=== PATIENT | female | born 1985 | race Caucasian/White ===

== ENCOUNTER → 2018-09-03 | Outpatient (CLI) | payer OTHER, SELFPAY ==
--- NOTE | 2018-09-03 07:58 | VDLE_ITS ---
Reason For Study: chronic venous insufficiency, pain and swelling RIGHT LEFT CFV is compressible, spontaneous, phasic, CFV is compressible, spontaneous, phasic, competent and demonstrates normal competent, and demonstrates normal augmentation. augmentation. FV is compressible, spontaneous, phasic, FV is compressible, spontaneous, phasic, competent and demonstrates normal competent and demonstrates normal augmentation. augmentation. POP V is compressible, spontaneous, phasic, POP V is compressible, spontaneous, phasic, competent and demonstrates normal competent and demonstrates normal augmentation. augmentation. T/P Trunk is compressible. T/P Trunk is compressible. PTV is compressible. PTV is compressible. RT PerV is compressible. LT PerV is compressible. S-F Junction is incompetent for greater S-F Junction is incompetent for greater than .5 seconds. S-F Junction measures .75 than .5 seconds. S-F Junction measures .63 cm. cm. GSV is competent above the knee, but GSV is incompetent throughout for greater incompetent below the knee for greater than .5 seconds. GSV measures .71 x .74 cm. than .5 seconds. GSV measures .47 x .51 cm. ASV at the groin is incompetent for greater ASV at the groin is incompetent for greater than .5 seconds. ASV measures 1.13 x 1.23 cm. than .5 seconds. ASV measures 1.06 x 1.12 cm. SSV is competent. SSV is incompetent for greater than .5 ASV from GSV at distal thigh to SSV mid calf seconds. SSV measures .3 x .33 cm. is incompetent for greater than .5 seconds. Procedure ASV measures .3 x .31 cm. Exam performed in department. Recreation Aide V 6 cm proximal to the medial The exam was diagnostic. malleolus is incompetent for greater than .5 Patient was scanned in reverse Trendelenburg seconds. position during reflux assessment. Interpretation Summary Deep veins of the lower extremities are bilaterally patent and compressible segmentally. There is no evidence of deep vein thrombosis on either side. Valvular competence appears intact within the proximal deep venous systems bilaterally. The greater saphenous veins appear bilaterally patent and compressible segmentally. Sapheno-femoral junctions are bilaterally incompetent . The right great saphenous vein appears competent above the knee. The right great saphenous vein appears incompetent below the knee. The left great saphenous vein appears segmentally incompetent. The right small saphenous vein is patent and incompetent. The left small saphenous vein is patent and competent. An incompetent accessory saphenous vein is noted in the right groin. An incompetent accessory saphenous vein is noted in the left groin. An incompetent accessory saphenous vein is noted with origin in the greater saphenous vein in the distal left thigh, and communicating with the left small saphenous vein in the left mid-calf. An incompetent journeyman pressman vein is noted in the left calf, located 6 centimeters proximal to the left medial malleolus. Ordering Physician: Ramon Adams Performed By: Hadley Mcmillan, RVT
== END | disposition home or self-care (01) ==
LOC: CVS 07:55
PROVIDERS: Referring Provider Surgery; Visit Provider Surgery
DX: M79.609 Pain in unspecified limb (principal); I87.2 Venous insufficiency (chronic) (peripheral); I83.10 Varicose veins of unspecified lower extremity with inflammation; M79.89 Other specified soft tissue disorders
CPT/HCPCS: 93970

== ENCOUNTER 2020-05-03 09:00 | Outpatient (RCR) | payer OTHER, SELFPAY ==
[2016-03-21 06:17] VITALS: BMI 35.7
--- NOTE | 2020-05-03 10:45 | BH.NA ---
Physical Data - Vital Signs Pulse Rate: 94 Blood Pressure: 117/87 - Height/Weight Height: 1.63 m Weight:: 68.946 kg Weight in Pounds: 152.0 lbs Current Medication Compliance - Medication Compliance Do you take your medication as prescribed?: Yes Nutritional History - Appetite Nutritional Instructions:: If client shows signs of a swallowing problem, weight change of 10 pounds or more in the last month, or is on a diabetic diet, the physician will review and request a dietitian consult, as appropriate. All unintentional weight loss will be referred to the physician for decision on need for dietitian consult. Describe your appetite:: Fair Additional nutritional information:: Client states recent decrease in appetite and has recently lost a couple of lbs. Functional Assessment - Sleep Pattern Describe any problems with sleeping: Client states she has been taking Ambien nightly and only sleeping about 5 hours per night. - Activities Motor Activity:: Functional Sensory/Communication Assess - Communication Problems Do you have difficulty understanding what people are saying?: No Surgical History - Surgical History Have you had any surgeries? If so, list type and date:: Yes - wisdom teeth, varicose vein Substance Abuse - Substance Abuse Please describe substance abuse in the last 30 days:: Client denies alcohol, tobacco or substance use. Client states she drinks 2 cans of pop per day. Mental Status Summary - Mental Status Significant Findings/Observations on Appearance and Mood:: Client is alert and oriented x 4. Client is casually dressed with good hygiene. Client makes good eye contact. Client's voice rate and volume normal. Client is cooperative with assessment. Client appears mildly depressed and anxious and becomes tearful at times. Client denies delusions/hallucinations and states she has fleeting SI but denies SI this day. Client makes logical associations and has normal processing. Suicide Assessment - Suicidal Ideation Are you currently or have you been suicidal in the past?: Yes - fleeting SI, but denies SI this day Suicidal Intentional Rating Scale (SIRS): Suicidal thoughts (past) Physician Notification: If Active suicidal thoughts/Will not contract for safety is checked, contact physician and document in the Physician Notification section below. Past Psychiatric History - MH Treatment Hx Past Psychiatric Medications:: Zoloft, Lexapro Age of first mental health symptoms: Client states she previously thought her depression was seasonal and has been to the doctor very infrequently for same, but states she was diagnosed with depression last year. Describe (age, circumstance, etc) any past hospitalizations: None Current providers for mental health treatment (counselor, psychiatrist, telehealth case manager, etc.): Counselor at [facility] but states she has only seen counselor 2 times Fall Risk Assessment - Age Age: Less than 60 - Mental Status Mental Status: Willing & able to ask for assistance when needed - Physical Status Physical Status: No problems - Impairments Impairments: None - Elimination Elimination: Continent AND independent - Gait or Balance Gait or Balance: Walks independently - Hx of Falls History of falls in the past 6 months: No known history - Medications/Substances Medications/substances used within the past 24 hours or ordered to administer: None of the medications/substances list above - Total Score Total Points:: 0 RN Summary of Impressions - Impressions Recommendations: Include psychiatric and medical issues, treatment planning recommendations, and discharge planning needs. Impressions: Psychiatric Issues: Major depressive disorder, recurrent, severe without psychosis; rule out seasonal affective disorder; panic disorder; generalized anxiety disorder Impression: Medical Issues: Client states she does not have a PCP. Discussed with client ways to obtain a PCP and client agrees she will look into establishing care with a PCP. - Level of Care How do the client's current symptoms and functional deficits support need for this level of care?: Client was self-referred to [facility] program with increased anxiety and depression. Client states her mental health has fluctuated over the last 3 years, but recently work was very stressful for her. Client states she had a lot of anxiety about going to work, and would often have panic attacks before going to work, with symptoms of shortness of breath, dry heaving and sometimes emesis. Client states she took a leave of absence from work in the last week and she states I have a new set of anxiety due to this because I'm afraid I made a mistake and I'm worried about what people will think of me. Client reports she has not had a panic attack since taking TRUDY from work. Client endorses decreased focus, stuggles with ADL's, restlessness, hopelessness and ruminations. Client reports fleeting SI, stating some days are worse than others with suicidal thoughts. Client denies SI this day. Client states she has a lot of anxiety about getting help for mental symptoms due to stigma. Client states she was supposed to start program yesterday but was unable to get out of her car and come in due to anxiety. Client tearful at times during assessment. PHP/IOP will promote gains and prevent further decompensation while providing social support and skills training.
--- NOTE | 2020-05-03 11:13 | BH.SGPN.GN ---
Behaviors/Verbalizations/Mental Status: [] Client alert and oriented, casual dress, hygiene tended to. Eye contact good. Motor activity WNL. Speech within normal limits. Affect congruent. Mood anxious, depressed. Thoughts linear, logical, no signs of hallucinations or delusions. Client Response/Progress/Benefit: [] Client first day in IOP group. Did well to remain an active participant despite reporting anxiety about group setting. This was AEB client providing some input during discussion, listening attentively to peers, and willingness to complete worksheet. Client attentive and at times contributing during psychoeducation and additional discussion on cognitive distortions. Reported connecting with several of the distortions reviewed and discussed experiencing catastrophizing thoughts most often. Client listened throughout discussion on how to reframe distorted thoughts into more realistic, rational statements. Client did well to work with fellow participants in small group setting to reframe example distorted thought. Client seemed to benefit from practicing identifying and reframing distorted thoughts. Client is to continue IOP to increase mental health understanding and use of healthy coping, improve anxiety management, and prevent decompensation. Narrative Note: []
[2020-05-03 11:16] VITALS: BP 117/87; PULSE 94
--- NOTE | 2020-05-03 13:47 | BH.PSY.EVA_ITS ---
Psychiatric Evaluation - Initial Evaluation Initial Evaluation: History of Present Illness: [] The patient is a 35-year-old female with a history of depression and anxiety who is self-referred due to worsening symptoms of anxiety and depression which have made her unable to work and have her struggling to make decisions. 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 Her symptoms increase in the past 5 weeks and she has been very stressed out by her work as a teacher. She also was unable to make the decision to come to the IOP program and yesterday actually had her drive her to the emergency room and was offered voluntary admission to the psychiatric unit but the patient refused voluntary admission and decided to try IOP instead. The patient has a lot of negative stigma about psychiatric treatment and psychiatric issues. Her biggest stress is the fear of what others will think about her because she had to take off work. For primary support she has her and 2 girlfriends. Patient says her marriage is going well but her is overwhelmed by her issues. The patient says that she has had mood and anxiety worsening this time for this for 3 years in a row. She says that she santos out on teaching around February or March and she likes things to be perfect and is unable to satisfy her self. She wakes up anxious and vomits sometimes. She denies any impulsive behavior or increased spending. She denies any grandiosity irritability or other symptoms of theresa. She denies any history of self-harm. She does endorse feeling depressed, anxious and hopeless. She denies anhedonia and still enjoys doing things with her children. Her appetite is been decreased and she lost 13 pounds over the past 2 months. Her sleep is been decreased but when she takes Ambien she gets about 5 hours of sleep. Only 3 hours of sleep without Ambien and she is tired during the day and has decreased concentration. She also endorses feeling guilty. She endorses having passive suicidal ideation and passive thoughts of by walking into traffic. She states my family would be better off without me. However she says she would never kill herself due to her children and family and is somewhat future oriented. She denies homicidal ideation, active suicidal ideation, plan for suicide, hallucinations, delusions. She does endorse feeling anxious and having some restless thoughts and constant rumination. She has panic attacks daily but these have become less since she started Zoloft. She denies OCD, eating disorder, trauma or PTSD. Current Psychiatric Medications: [] Zoloft 25 mg (x2-1/2 weeks but discontinued it 2 days ago because it made her feel too numb); Ambien 5 mg p.o. nightly x1 week Past Psychiatric History: [] No prior psychiatric admissions. No suicide attempts. She recently had counseling a few times which may have been a little helpful. She was first depressed she thinks 3 years ago at around age 32. She also remembers having separation anxiety in kindergarten. Her first medications for depression or anxiety were 1 year ago. She took Lexapro at that time and felt too numb on it. This is the first time she has seen a psychiatrist. No other medications ever. Substance Use History: [] Non-smoker. No marijuana use. No alcohol use. No drug use. No rehab ever. Allergies: [] No known allergies Medications: [] Psych meds plus a B12 injection followed by B12 by mouth. Past Medical History: [] Leander teeth surgery only. No medical issues. 2 para 2 with a history of 2 vaginal deliveries with no complications. She has a Mirena IUD for control now and has light menstrual periods. Family Psychiatric History: [] Mother is age 56 and father at age 53 of diabetes mellitus complications. Mom and brother do not express their emotions easily but there is no known psychiatric issues in the entire family. No suicides. No substance abuse issues. Personal/Social History: [] The patient was born and raised in [place] and describes her childhood as good. There was financial stress when she was a child and her mother and father did not get along well with each other. They were verbally abusive to each other. The patient had no abuse verbal physical or sexual. She has 1 brother 5 years younger and she is close to him. She had separation anxiety when she was taken to kindergarten. She likes school later and did well in school. She graduated high school and attended college and received a BA in public relations counselor education. 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 She got at age 21 and describes her is very supportive. He is 36 years old and teaches at a middle school. Legal History: [] No arrests. 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 No DUIs. Review of Systems: [] Negative except as noted in present illness. Vital Signs: [] Reviewed in nurses notes and stable up and patient is able to do the PHP program. Mental Status Examination: [] Patient is a 35-year-old female who is seen wearing a mask due to the pandemic and is casually dressed and groomed with good hygiene. She has no psychomotor agitation or retardation. She is cooperative and pleasant during the interview. Eye contact is good and speech is normal rate and rhythm and fluent with no pressure. Mood is depressed. Affect is constricted. Thought process is goal-directed and organized. Thought content: There is evidence of passive suicidal ideation and passive thoughts of . There is no evidence of active suicidal ideation, homicidal ideation, hallucinations, delusions or symptoms of theresa. Reality testing is intact. Intelligence is average or above. Judgment is intact. Insight: Limited. Impulsivity: Moderate. Diagnoses: [] Austin I: [] Major depressive disorder, recurrent, severe without psychosis; rule out seasonal affective disorder; panic disorder; generalized anxiety disorder Austin II: [] Deferred Austin III: [] Negative Austin IV: [] Primary support, financial and work issues Plan: [] The patient will start the PHP program at [facility] as the structure, support, education, individual and group therapy will hopefully prevent worsening of the patient's symptoms. She felt safe during the interview and if it anytime she does not feel safe she will let us know or go to the emergency room. The risks, options, possible complications and side effects of medications were discussed with the patient and she understands and accepts these. The patient refuses SSRIs as she has had side effects on them and does not want to feel too numb. Patient agrees to try Remeron 15 mg p.o. nightly in order to help with her anxiety, sleep and appetite and weight loss. She understands there is a side effect of weight gain but she will continue to eat healthfully and exercise regularly and we will see how this goes. If this does not work the patient may be a candidate for Seroquel or Abilify or another antidepressant. Patient will not drink any caffeine after 12 noon. Prescription was sent in for Remeron 15 mg p.o. nightly. She will continue to follow-up with her outpatient psychiatric and medical providers.
--- NOTE | 2020-05-03 13:58 | BH.PSY.EVA_ITS ---
Initial Treatment Plan - Patient Information Visit Information: ADMISSION DATE: EXPECTED LOS: 4-6 weeks - Problems/Symptoms Problem #1:: Depression Symptom:: Sadness, hopelessness, biological disruption of appetite and sleep, d ecreased energy, decreased concentration, guilt, passive suicidal ideation, passive thoughts of Problem #2:: Anxiety Symptom:: Racing thoughts, daily panic attacks, rumination
--- NOTE | 2020-05-03 14:54 | BH.MDN ---
Multi-Disciplinary Note - Note 60-min Individual Time Started:: 12:05 Date: 05/03/20 Purpose of session/treatment goals addressed:: The purpose of this session was to gather information on client's current stressors, symptoms, and treatment goals. Another goal was to build rapport and provide psychoeducation. Eye Contact:: Good Appearance:: Casual Speech:: Rapid Mood:: Anxious, Dysthymic Affect:: Constricted Thoughts:: Circular, Other - difficulty with memory, No evidence of hallucinations/delusions noted Staff Interventions:: Therapist used active listening and open-ended questions to explore client's current stressors, symptoms, history, and treatment goals. Therapist used strengths perspective to build rapport and provide emotional support. Therapist provided psychoeducation on anxiety and distortions. Therapist gave client encouragement and gently challenged inappropriate guilt and stigma. Therapist gave client homework to engage in two different kinds of self-care tonight. Client Response:: Client responded well to session, open to meeting with therapist. Client has never had this intense of mental health tx before. Client presents as highly reluctant about being off of work to manage her mental health. Client expressed feeling guilty, worrying about what others think, and feeling like I should just push through. Receptive to gentle thought challenging by therapist and discussed the potential benefits of taking time off as well as the consequences of returning to work early. Client shared she wants to be able to decrease anxiety and learn healthy coping skills. Client self-identified as stubborn and shared many people have told her to get help, but I'm my own worst enemy. Client shared personal stigma associated with mental health and verbalized numerous distorted thoughts. With challenging, client able to recognize these as distortions, but client is not yet ready to combat them. Willing to work first on reducing isolation and increase self-care. Client endorses a lot of shame and there was a discussion on how isolating herself will only increase shame. Client's goal for tonight is to color or play games with her daughters and to attend [facility] every day this week. Risks/Concerns:: Client denies any active suicidal ideations, plan, or intent as of 05/03/20. Client does admit to having passive thoughts of and fleeting, passive SI. Children and are her protective factors. Reports ability to maintain safety today. Progress Toward Goals/Plan:: Client's first day in PHP tx. Client continues to be reluctant about getting mental health tx and taking time off of work. Client endorses a depressed mood, anhedonia, difficulty concentrating, poor sleep, inappropriate guilt, poor appetite, and passive thoughts of . Client is also experiencing severe anxiety that has significantly impacted her overall functioning. Client reports memory issues, indecisiveness, racing thoughts, and ruminations. Will continue PHP tx to prevent decompensation and learn healthy coping skills. Time Stopped:: 13:00
--- NOTE | 2020-05-03 14:55 | BH.MTP ---
[facility] Treatment Plan - Patient Information Program Physician:: Dr. Amarilys Lara Primary Therapist:: DESMOND Rodriguez - Psychiatric Diagnoses Psychiatric Diagnoses:: Major depressive disorder, recurrent, severe without psychosis F 33.2; rule out seasonal affective disorder; panic disorder; generalized anxiety disorder Diagnosis Code(s):: F33.2 - Estimated LOS Estimated LOS (in weeks):: 1 Problem/Goal #1 - Problem/Goal #1 Stated Goal:: Client will reduce depression, feelings of hopelessness, and passive suicidal ideation due to Major Depressive Disorder. Description of Barriers: Client verbalizing a lot of negative stigma about psychiatric treatment and psychiatric issues. One of client?s biggest stressors is the fear of what others will think about her because she had to take off work. Client also admits to perfectionist tendencies and endorses numerous negative thinking patterns. Functional Impact: Client is a 35-year-old female with a history of MDD and ARLEEN. Client denies history of previous psychiatric admissions or suicide attempts. Client was self-referred to IOP/PHP due to worsening anxiety and depressive symptoms. Client recently started FMLA from work due to mental health impacting functioning. Client reports decompensation over the past five weeks with work being the primary trigger. Client currently endorses poor sleep, inability to concentrate and make decisions, poor appetite, restlessness, memory issues, racing thoughts, and hopelessness. Client reports constant ruminations and daily panic attacks. Client is struggling to complete ADLs and function at her baseline. Client endorses significant guilt about being off of work as well as numerous distorted thoughts. Client endorses difficulty making decisions and frequently changes her mind. Client denies active suicidal thoughts, plan, or intent. However, does report not caring if she and passive thoughts about stepping into traffic. Family is her biggest protective factor. Client has been unable to see progress reducing anxiety and depression with just medication alone. Goal Relevant Strengths/Supports: Family support and established with outpatient therapy. - Objectives Objective #1 Stated Objective: Client will learn and utilize 2-3 healthy coping strategies to manage depressive symptoms and increase mood stability. Interventions: Therapist will assist client in identifying warning signs and triggers for depression, inappropriate guilt, and feelings of hopelessness. Therapist will teach client coping skills to reduce depression and encourage healthy emotional regulation. Discharge Criteria: Client will have accomplished this goal when she can identify and report using 2-3 healthy coping skills to reduce depressive symptoms. Target Date: 05/10/20 Review Date: 05/10/20 Status: open Problem/Goal #2 - Problem/Goal #2 Stated Goal:: Reduce intensity and duration of anxiety to improve overall functioning. Description of Barriers: Client verbalizing a lot of negative stigma about psychiatric treatment and psychiatric issues. One of client?s biggest stressors is the fear of what others will think about her because she had to take off work. Client also admits to perfectionist tendencies and endorses numerous negative thinking patterns. Functional Impact: Client is a 35-year-old female with a history of MDD and ARLEEN. Client denies history of previous psychiatric admissions or suicide attempts. Client was self-referred to IOP/PHP due to worsening anxiety and depressive symptoms. Client recently started FMLA from work due to mental health impacting functioning. Client reports decompensation over the past five weeks with work being the primary trigger. Client currently endorses poor sleep, inability to concentrate and make decisions, poor appetite, restlessness, memory issues, racing thoughts, and hopelessness. Client reports constant ruminations and daily panic attacks. Client is struggling to complete ADLs and function at her baseline. Client endorses significant guilt about being off of work as well as numerous distorted thoughts. Client endorses difficulty making decisions and frequently changes her mind. Client denies active suicidal thoughts, plan, or intent. However, does report not caring if she and passive thoughts about stepping into traffic. Family is her biggest protective factor. Client has been unable to see progress reducing anxiety and depression with just medication alone. Goal Relevant Strengths/Supports: Family support and established with outpatient therapy. - Objectives Objective #1 Stated Objective: Client will identify 2-3 anxiety triggers and 2-3 coping skills to use when feeling anxious. Interventions: Therapist will help client increase awareness of cognitive distortions, triggers, and warning signs for anxiety. Therapist will provide psychoeducation on the overall impact anxiety has on individuals. Therapist will utilize CBT, DBT, and mindfulness strategies to teach client ways to manage symptoms and increase emotional regulation. Target Date: 05/10/20 Review Date: 05/10/20 Status: open
--- NOTE | 2020-05-03 14:56 | BH.PSA ---
Source of Information - Presenting Problems/Circumstances Problems, Referral Source, Mental Status, Client: Client is a 35-year-old female with a history of MDD and ARLEEN. Client denies history of previous psychiatric admissions or suicide attempts. Client was self-referred to IOP/PHP due to worsening anxiety and depressive symptoms. Client recently started FMLA from work due to mental health impacting functioning. Client reports decompensation over the past five weeks with work being the primary trigger. Client currently endorses poor sleep, inability to concentrate and make decisions, poor appetite, restlessness, memory issues, racing thoughts, and hopelessness. Client reports constant ruminations and daily panic attacks. Client is struggling to complete ADLs and function at her baseline. Client endorses significant guilt about being off of work as well as numerous distorted thoughts. Client endorses difficulty making decisions and frequently changes her mind. Client denies active suicidal thoughts, plan, or intent. However, does report not caring if she and passive thoughts about stepping into traffic. Family is her biggest protective factor. Client has been unable to see progress reducing anxiety and depression with just medication alone. Psychiatric Presentation - Psych Issues & Need for Admission Psychiatric Issues:: Major depressive disorder, recurrent, severe without psychosis F 33.2; rule out seasonal affective disorder; panic disorder; generalized anxiety disorder Past Psychiatric History - Treatment Hx Treatment History: No prior psychiatric admissions. No suicide attempts. Client had counseling a few times which may have been a little helpful. Client was first depressed, she thinks three years ago at around age 32. She also remembers having separation anxiety in kindergarten. Her first medications for depression or anxiety were one year ago. She took Lexapro at that time and felt too numb on it. This is the first time she has seen a psychiatrist. No other medications ever. First hospitalization:: n/a Most recent hospitalization:: n/a Medication Trials:: Yes ECT Therapy:: No Age of first mental health symptoms: Client reports separation anxiety in kindergarten. Client reports significant mental health symptoms did not start until client was 32 years old. At this time client began to experience anxiety and depression. Describe (age, circumstance, etc) any past hospitalizations: Denies hospitalizations. Current providers for mental health treatment (counselor, psychiatrist, corrections caseworker, etc.): Kayleigh Florian at [facility] for individual therapy. Development & Family of Origin - Childhood Significant Childhood Events: There was financial stress when she was a child and her mother and father did not get along well with each other. - Family Who currently lives in your home?: Client lives with her and their two daughters. Describe family composition:: Client was raised in [place] and describes her childhood as good. Client's father at age 52, but client's mother is still alive. Client has one brother five years younger and she is close to him. Client got at age 21 and describes her is very supportive. Client and her have two daughters age eight and four. - Family History Family Hx of Psychiatric or AOD Problems: Mom and brother do not express their emotions easily but there is no known psychiatric issues in the entire family. No suicides. No substance abuse issues. Ethnicity - Culture Do you identify yourself with any particular cultural, ethnic background, or community?: No - Sexuality Sexual Orientation: Heterosexual Spirituality - Faith Do you currently identify with any organized zoroastrianism?: Anabaptism Mental Status - Memory Recent Memory: Poor Remote Memory: Fair - Concentration Concentration: Poor - Eye Contact Eye Contact: Good - Speech Speech: Repetitious, Circumstantial - Thought Process Thought Process: Illogical, Ruminations Insight: Fair Judgment: Poor Behavior: Anxious - Orientation Orientation: Time, Person, Place, Situation - Appearance Appearance: Neat/clean - Mood Mood: Anxious, Depressed, Irritable - Affect Affect: Alert Suicide Assessment - Suicidal Ideation Have you ever felt like hurting yourself?: Yes Were you using ETOH/drugs at the time?: No Suicidal Intentional Rating Scale (SIRS): Current suicidal thoughts/No plan/Contracts for safety - Pt endorses having passive suicidal ideation and passive thoughts of by walking into traffic. She states my family would be better off without me. However she says she would never kill herself due to her children and family. No active SI. Physician Notification: If Active suicidal thoughts/Will not contract for safety is checked, contact physician and document in the Physician Notification section below. Violent Behavior/Abuse History - Homicidal Ideation Do you have any homicidal thoughts? If so, explain:: No Is there a known potential victim? If yes, who:: No - Abuse Have you ever been abused?: No - Life Events Are there any other significant life events?: Hardships Describe significant life events: Worsening MH symptoms that led to client taking FMLA. This has been extremely hard for client. - Safety Do you ever feel threatened in your home? 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 Service - Service Have you ever been in the ?: No Legal History - Records Have you had any past legal charges?: No Do you have any current legal charges?: No Have you ever been incarcerated? If yes, describe:: No - Court Orders Have you had any past court orders for psychiatric treatment?: No Do you have a present court order for psychiatric treatment?: No Problem Checklist - Current Problem Areas Problem List: Nutritional/Eating pattern changes, Depressed mood/sad, Anxiety, Anger/aggression, Inattention, Impulsivity, Sleep problems, Additional psychosocial stressors Discharge Planning Needs - Anticipated Follow-Up Mental Health Center (Name/Phone Number):: [facility] in [place] Diagnoses - Diagnoses Diagnosis #1:: MDD Diagnosis #2:: SAD Diagnosis #3:: ARLEEN Diagnosis #4:: Panic Disorder Interpretive Summary - Interpretive Summary Interpretive Summary: Client is a 35-year-old female with a history of depression and anxiety who is self-referred due to worsening symptoms of anxiety and depression which have made her unable to work and have her struggling to make decisions. 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 Client reports extreme anxiety about being off work. Client?s symptoms have increased in the past 5 weeks and she has been very stressed out by her work as a teacher. She also was unable to make the decision to come to the PHP program and yesterday actually had her drive her to the emergency room and was offered voluntary admission to the psychiatric unit but the patient refused voluntary admission and decided to try PHP instead. Client expresses a lot of negative stigma about psychiatric treatment and psychiatric issues. Client reports her biggest stress is the fear of what others will think about her because she had to take off work. For primary support client has her and 2 girlfriends. Client says her marriage is going well but her is overwhelmed by her issues. Client also worries about how her mental health is impacting her daughters. Client says that she has had mood and anxiety worsening this time for this for 3 years in a row. Client reports belief that she santos out on teaching around February or March and she likes things to be perfect and is unable to satisfy herself. Client wakes up anxious and vomits sometimes. Client denies any risk taking behaviors or increased spending. She denies any grandiosity, irritability, or other symptoms of theresa. Client denies any history of self-harm. Client does endorse feeling depressed, anxious and hopeless. Client reports anhedonia and shared she struggles to enjoy much of anything right now. Her appetite has been decreased and she lost 13 pounds over the past 2 months. Her sleep has been decreased but when she takes Ambien she gets about 5 hours of sleep. Only 3 hours of sleep without Ambien and she is tired during the day and has decreased concentration. Client also endorses feeling guilty and endorses having passive suicidal ideation and passive thoughts of by walking into traffic. Client states my family would be better off without me. However she says she would never kill herself due to her children and family. Client denies homicidal ideation, active suicidal ideation, plan for suicide, hallucinations, delusions. Client does endorse feeling anxious and having some restless thoughts and constant rumination. Client has panic attacks daily but these have become less since she started Zoloft. Client denies OCD, eating disorder, trauma or PTSD. Client does not know of any family history of mental health or substance abuse issues. Treatment Plan Recommendations - Recommendations Guidelines: Special needs identified to be included in the development of an individualized treatment plan regarding past psychiatric history and treatment, developmental events, family relationships/events/culture, past and/or current educational, occupational, social, and residential experience, and legal status. Recommendations:: Client will start the PHP program at [facility] as the structure, support, education, individual and group therapy will hopefully prevent worsening of client?s symptoms. She felt safe during the interview and if it anytime she does not feel safe she will let us know or go to the emergency room. The risks, options, possible complications and side effects of medications were discussed between IOP psychiatrist and client and she understands and accepts these. Client will continue to follow-up with her outpatient psychiatric and medical providers.
--- NOTE | 2020-05-04 09:06 | BH.SGPN.GN ---
Behaviors/Verbalizations/Mental Status: []Eye contact is fair to good. Alert and oriented. Motor activity is appropriate. Appearance is neat and casual. grooming is appropriate. Speech is Appropriate. Mood is anxious and depressed. Affect is congruent. Thoughts are linear and logical. No evidence of psychosis or hallucinations. Client Response/Progress/Benefit: []Pt engaged in session AEB listening to others and willingness to share thoughts and feelings with group. Pt noted feeling ?angry? on this date and attributes this to feeling she was pressured into receiving mental health treatment. Discussed feeling angry that her did not give her much choice in the matter, anger about taking a leave of absence from work, and anger related to struggling with her mental health in the first place. Pt receptive of supportive feedback provided by the group and noted that despite not wanting to be in tx, she is trying to be more open minded about it now that she is her. Appeared to benefit from other participants discussing similar frustrations. Recommended continued IOP tx to improve application of healthy coping behaviors, improve anxiety management, and prevent decompensation. Narrative Note: []
--- NOTE | 2020-05-04 10:15 | BH.SGPN.GN ---
Behaviors/Verbalizations/Mental Status: []Client alert and oriented, casually dressed and groomed. Eye contact fair. Motor activity appropriate. Speech within normal limits. Affect flat, mood dysthymic. Thoughts linear, logical, no signs of hallucinations or delusions. Client Response/Progress/Benefit: []Client responded well to session, took notes and actively listened to peers throughout discussion. Client defined anxiety as ?fear and worry that is out of proportion to reality.? Client appeared anxious throughout session AEB restless legs. Client appeared to benefit from group as client connected with peers on how anxiety impacts physical and cognitive symptoms. Client shared anxiety decreases sleep due to feeling ?unable to turn off brain.? Progress noted as client shared with other group members when feeling anxious. Client will continue PHP to prevent decompensation, improve daily functioning, and promote the use of healthy coping skills. Narrative Note: []
--- NOTE | 2020-05-04 11:15 | BH.SGPN.GN ---
Behaviors/Verbalizations/Mental Status: []Client alert and oriented, casually dressed and groomed. Eye contact fair. Motor activity appropriate. Speech within normal limits. Affect constricted, mood anxious and depressed. Thoughts linear, logical, no signs of hallucinations or delusions. Client Response/Progress/Benefit: []Client was a mostly passive participant in group discussion AEB providing limited input throughout. Client reported safety behaviors she engages in includes: avoiding work and not planning for work. Attentive during psychoeducation on anxiety management skills. The group practiced belly breathing. Client identified wanting to practice belly breathing at least 3 times in the next week. Appeared to benefit from practicing in the moment coping skills and identifying personal mindfulness activities to manage anxiety independently. Client will continue IOP tx to improve daily functioning, combat distortions, and prevent decompensation.
--- NOTE | 2020-05-04 15:42 | BH.MDN_ITS ---
Multi-Disciplinary Note - Note 60-min Individual Time Started:: 12:15 Date: 05/04/20 Purpose of session/treatment goals addressed:: The purpose of this session was to address current symptoms, negative thoughts, and stressors. Another goal was to increase self-awareness. Eye Contact:: Good Motor Activity:: Restless Appearance:: Neat Speech:: Rambling Mood:: Anxious, Dysthymic Affect:: Congruent - tearful Thoughts:: Racing, Circular, No evidence of hallucinations/delusions noted Staff Interventions:: Therapist used active listening and provided emotional support. Allowed client to verbalize frustrations, anxiety, and stressors. Therapist used cognitive restructuring and motivational interviewing techniques to increase self-awareness. Reviewed healthy coping skills to help manage racing thoughts. Encouraged client to talk with her . Client Response:: Client responded well to session, open to meeting with therapist. However, client reports she has increased anger today and shared ?I just feel like this was all forced on me.? 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 Client then shared feeling guilty because she is angry with her and ?he has done so much for me.? Receptive to using self-compassion. Client continues to struggle with decision making and feels like being away from work is making her mental health worse. Client shared she is currently unable to ?shake the thoughts? about what others think about client being off work. Client also reports belief that she ?should have just pushed through? and gotten help this summer for her mental health. Client reports feeling like she has ?ruined my life? because of going on FMLA. Unable to challenge these thoughts in session, although did give recognition that she is using distorted thinking. Client willing to talk with her about coming to a compromise and seeing if maybe in the future client can return to work on a reduced schedule. Discussed coping skills to manage racing thoughts. Client was willing to do a crossword puzzle or a yoga flow. Risks/Concerns:: Client endorses passive wishes of and feels hopeless, but she denies wanting to kill herself. Client reports she wants to watch her daughters grow up and could never put them through that hurt. Progress Toward Goals/Plan:: Client's second day in [facility] tx. Client continues to be reluctant about getting mental health tx and taking time off of work. Client reports increased anger today because client does not feel like she was ?making sound decisions? when she took time off work. Client endorses a depressed mood, anhedonia, difficulty concentrating, poor sleep, inappropriate guilt, poor appetite, and passive thoughts of . Client is also experiencing memory issues, indecisiveness, racing thoughts, and ruminations. Will continue PHP tx to prevent decompensation and learn healthy coping skills. Time Stopped:: 13:10
--- NOTE | 2020-05-05 09:18 | BH.DS_ITS ---
Discharge Summary - Demographics Date of Admission:: 05/03/20 Discharge Date: 05/05/20 Presenting Problems at Admission:: Client is a 35-year-old female with a history of MDD and ARLEEN. Client denies history of previous psychiatric admissions or suicide attempts. Client was self-referred to [facility] due to worsening anxiety and depressive symptoms. Client recently started FMLA from work due to mental health impacting functioning. Client reports decompensation over the past five weeks with work being the primary trigger. Client currently endorses poor sleep, inability to concentrate and make decisions, poor appetite, restlessness, memory issues, racing thoughts, and hopelessness. Client reports constant ruminations and daily panic attacks. Client is struggling to complete ADLs and function at her baseline. Client endorses significant guilt about being off of work as well as numerous distorted thoughts. Client endorses difficulty making decisions and frequently changes her mind. Client denies active suicidal thoughts, plan, or intent. However, does report not caring if she and passive thoughts about stepping into traffic. Family is her biggest protective factor. Client has been unable to see progress reducing anxiety and depression with just medication alone. Discharge Diagnoses:: Major depressive disorder, recurrent, severe without psychosis F 33.2; rule out seasonal affective disorder; panic disorder; generalized anxiety disorder Reason for Discharge:: Client was admitted to [facility] the night of 05/04/20 for depression, passive SI, and anxiety. Client will be discharged from [facility] as she needs higher level of care at this time. - Treatment Progress During Treatment & Response: No progress due to client needing a higher level of care and discharging early from [facility]. Client attended two days of [facility] which is not enough time to make progress. Client was anxious while in [facility], but she did well to take notes during group sessions. Issues Still to be Addressed:: Client's anxiety and depression will need to be addressed following inpatient treatment as the symptoms hinder client's functioning and quality of life. Additionally, client can benefit from combating negative core beliefs, personal stigma, and perfectionistic tendencies. Discharge Recommendations/Instructions:: This therapist spoke with client's on the phone and informed that client can return to [facility] once discharged from [facility]. Discharge Handout: Complete Discharge Handout with client on aftercare options and continuity of care.
== END 2020-05-05 09:17 | disposition short-term general hospital (02) ==
LOC: BHPHP 09:00
PROVIDERS: Referring Provider Psychiatry & Neurology Psychiatry; Visit Provider Psychiatry & Neurology Psychiatry
DX: F33.2 Major depressive disorder, recurrent severe without psychotic features (principal); F41.0 Panic disorder [episodic paroxysmal anxiety]; F41.1 Generalized anxiety disorder; Z79.899 Other long term (current) drug therapy
CPT/HCPCS: H0035; 90837; G0410

== ENCOUNTER 2020-05-15 09:00 | Outpatient (RCR) | payer OTHER, SELFPAY ==
--- NOTE | 2020-05-15 09:00 | BH.COMM ---
Communication Note - Communication with Client Communication Note: Completed initial paperwork with patient. Pt was discharged from [facility] on 05/12/20. Updated previous intake information. Completed [place] Suicide Screening. Not an imminent risk to self.
--- NOTE | 2020-05-15 10:10 | BH.SGPN.GN ---
Behaviors/Verbalizations/Mental Status: []Client alert and oriented, casually dressed and appropriately groomed. Eye contact fair. Motor activity appropriate. Speech within normal limits. Affect constricted, mood anxious. Thoughts linear, logical, no signs of hallucinations or delusions. Client Response/Progress/Benefit: []Pt engaged in session AEB pt listening attentively to group discussion and provided some input during session. Pt gave example that someone can be flexible by adjusting expectations instead of beating self up for not getting everything done. Pt connected with the topic of resilience and agreed with the group that it is possible to become more resilient. Discussed the positive and negative forces in life that impact a person?s resilience. Engaged in discussion about barriers to resiliency. Pt seemed to benefit from increasing awareness of factors that influence personal resilience and understand importance of improving resiliency. Pt to continue PHP to continue use of healthy coping, improve confidence and prevent decompensation. Narrative Note: []
--- NOTE | 2020-05-15 11:15 | BH.SGPN.GN ---
Behaviors/Verbalizations/Mental Status: []Client alert and oriented, neat and casually dressed and groomed. Eye contact good. Motor activity appropriate. Speech within normal limits. Affect congruent, mood depressed and anxious. Thoughts linear, logical, no signs of hallucinations or delusions. Client Response/Progress/Benefit: [] Client responded well to session, engaged and participated throughout discussion. Client participated in the discussion of how each resiliency component can help increase personal resiliency. Shared relating to each component but often struggles with actively applying each component in daily life. Client worked with group to identify ways to practice each of the resiliency traits reviewed, though again struggled to disqualify her own ability to use these traits. Client took an active participatory role within the activity and worked with group to identify strategies for improving group?s ability to reach identified goal. Appeared to benefit from group as client discussed how resiliency impacts daily functioning. Identified wanting to work on improving personal resilience factor of ?maintain a hopeful outlook? by using positive affirmations and just telling herself that it is possible to see improvements in her mental health. Will continue PHP tx to improve the use of healthy coping skills, further reduce anxiety, improve mood stability, and prevent decompensation. Narrative Note: []
--- NOTE | 2020-05-15 14:09 | BH.MDN_ITS ---
Multi-Disciplinary Note - Note 60-min Individual Time Started:: 12:07 Date: 05/15/20 Purpose of session/treatment goals addressed:: To work on goal #1 of client's tx plan and to build rapport. Eye Contact:: Good Motor Activity:: Appropriate Appearance:: Neat Mood:: Anxious, Dysthymic Affect:: Constricted Thoughts:: Other - ruminating, No evidence of hallucinations/delusions noted Staff Interventions:: Therapist provided emotional support and explored client's hospitalization experience. Therapist taught client different grounding skills and practiced these with client in session. Therapist provided psychoeducation on the impact anxiety has on the brain and overall functioning. Therapist helped client set goals for therapy and gave homework to practice grounding skills. Client Response:: Client responded well to session, open to meeting with t apist. Client recently discharged from [facility] and shared since discharging, her depression has decreased, and she feels less physically anxious. Client stated she continues to have racing thoughts and worries about her future. Client described her other symptoms of anxiety and was receptive to learning about how anxiety impacts the brain. Client willing to learn and practice different mindfulness and grounding skills. Client practiced 5-senses, deep breathing, and progressive muscle relaxation. Client willing to practice these three times a day. Client also wants to work on gaining autonomy and hobbies. 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 This impacts client's current mental health and causes worries for the future. Client recognizes her distorted thought patterns and is willing to learn more about how to manage anxious, intrusive thoughts. Client receptive to homework to practice coping skills. Risks/Concerns:: Client denies any suicidal ideations, plan, or intent since discharging from [facility]. Future oriented and family is protective factor. Progress Toward Goals/Plan:: Discharged from [facility] on 05/12/20 and reports some improvement since discharge. Client reports reduced physical symptoms of anxiety and is no longer suicidal. However, client continues to struggle with inability to focus, issues with decision-making, constant worries about the future, and racing thoughts. Reports feeling the most hopeful I've been in therapy after group today. Will continue PHP tx to prevent decompensation, learn healthy coping skills, and improve functioning. Time Stopped:: 13:00
--- NOTE | 2020-05-15 14:12 | BH.MTP ---
Master Treatment Plan - Patient Information Program Physician:: Dr. Amarilys Lara Primary Therapist:: Marce LOGAN - Psychiatric Diagnoses Psychiatric Diagnoses:: Major depressive disorder, recurrent, severe without psychosis F 33.2; rule out seasonal affective disorder; panic disorder; generalized anxiety disorder Diagnosis Code(s):: F 33.2 - Estimated LOS Estimated LOS (in weeks):: 1 Problem/Goal #1 - Problem/Goal #1 Stated Goal:: Reduce intensity and duration of anxiety to improve overall functioning. Description of Barriers: Client verbalizing a lot of negative stigma about psychiatric treatment and psychiatric issues. One of client?s biggest stressors is the fear of what others will think about her because she had to take off work. Client also admits to perfectionist tendencies and endorses numerous negative thinking patterns. Client continues to struggle with inability to make decisions and has issues with focus still. 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 Functional Impact: Client is a 35-year-old female with a history of depression and panic disorder. Client was recently admitted to [facility] from 05/04/20-05/12/20 due to increased hopelessness and suicidal ideations with methods. Client reports since discharging from [facility] she no longer feels suicidal and she reports fewer physical symptoms of anxiety. Client continues to report significant issues with lack of concentration, worries about the future, inappropriate guilt, hopelessness, racing thoughts, and anxiety. Client reports not feeling like she has direction in life and does not feel like she knows who she is. Client continues to feel overwhelmed and struggles with decision making. Client is unable to function at her baseline at home and is on leave from work. Goal Relevant Strengths/Supports: Recently discharged from [facility] and reports some symptom reduction. Family support and future oriented. - Objectives Objective #2 Stated Objective: Client will gain awareness of anxiety symptoms and triggers while learning 2-3 calming skills to reduce intensity of symptoms. Interventions: Therapist will help client increase awareness of cognitive distortions, triggers, and warning signs for anxiety. Therapist will provide psychoeducation on the overall impact anxiety has on individuals. Therapist will utilize CBT, DBT, and mindfulness strategies to teach client ways to manage symptoms and increase emotional regulation. Therapist will practice these skills during session with client. Discharge Criteria: Client will have accomplished this goal when client can report increased self-awareness and application of at least 2 calming skills. Target Date: 05/22/20 Review Date: 05/22/20 Status: open Problem/Goal #2 - Problem/Goal #2 Stated Goal:: Client will reduce depression and learn healthy coping skills to better improve mood stability. Description of Barriers: Client verbalizing a lot of negative stigma about psychiatric treatment and psychiatric issues. One of client?s biggest stressors is the fear of what others will think about her because she had to take off work. Client also admits to perfectionist tendencies and endorses numerous negative thinking patterns. Client continues to struggle with inability to make decisions and has issues with focus still. 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 Functional Impact: Client is a 35-year-old female with a history of depression and panic disorder. Client was recently admitted to [facility] from 05/04/20-05/12/20 due to increased hopelessness and suicidal ideations with methods. Client reports since discharging from [facility] she no longer feels suicidal and she reports fewer physical symptoms of anxiety. Client continues to report significant issues with lack of concentration, worries about the future, inappropriate guilt, hopelessness, racing thoughts, and anxiety. Client reports not feeling like she has direction in life and does not feel like she knows who she is. Client continues to feel overwhelmed and struggles with decision making. Client is unable to function at her baseline at home and is on leave from work. Goal Relevant Strengths/Supports: Recently discharged from [facility] and reports some symptom reduction. Family support and future oriented. - Objectives Objective #1 Stated Objective: Client will learn and utilize 2-3 healthy coping strategies to manage depressive symptoms and combat distorted thought patterns. Interventions: Therapist will assist client in identifying warning signs and triggers for depression, inappropriate guilt, and self-deprecation. Therapist will teach client coping skills to reduce depression and encourage healthy emotional regulation. Discharge Criteria: Client will have accomplished this goal when she can identify and report using 2-3 healthy coping skills to reduce depressive symptoms. Target Date: 05/22/20 Review Date: 05/22/20 Status: open
--- NOTE | 2020-05-15 14:12 | BH.PSA ---
Source of Information - Presenting Problems/Circumstances Problems, Referral Source, Mental Status, Client: Client is a 35-year-old female with a history of depression and panic disorder. Client was recently admitted to [facility] from 05/04/20-05/12/20 due to increased hopelessness and suicidal ideations with methods. Client reports since discharging from [facility] she no longer feels suicidal and she reports fewer physical symptoms of anxiety. Client continues to report significant issues with lack of concentration, worries about the future, inappropriate guilt, hopelessness, racing thoughts, and anxiety. Client reports not feeling like she has direction in life and does not feel like she knows who she is. Client continues to feel overwhelmed and struggles with decision making. Client is unable to function at her baseline at home and is on leave from work. Psychiatric Presentation - Psych Issues & Need for Admission Psychiatric Issues:: Major depressive disorder, recurrent, severe without psychosis F 33.2; rule out seasonal affective disorder; panic disorder; generalized anxiety disorder Past Psychiatric History - Treatment Hx Treatment History: One prior psych admission as dictated above. No other psych admissions. No suicide attempts ever. Client was first depressed she thinks at around age 32. She also remembers having separation anxiety in kindergarten. Client first took medications for depression or anxiety about a year ago. Client had past experiences with Zoloft and Lexapro, but felt too numb on both of these. She used Ambien in the past for sleep. Client states that every year around this time for the past 2 years she has had mood and anxiety symptoms which worsened. 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 First hospitalization:: 05/04/20-05/12/20 [facility] Most recent hospitalization:: 05/04/20- 05/12/20 [facility] Medication Trials:: Yes ECT Therapy:: No Age of first mental health symptoms: Client reports separation anxiety in kindergarten. Client reports significant mental health symptoms did not start until client was 32 years old. At this time client began to experience anxiety and depression. Describe (age, circumstance, etc) any past hospitalizations: Client had her first hospitalization this year at age 35. Client went to [facility]. Client was admitted for suicidal ideations with methods, depression, and anxiety. Current providers for mental health treatment (counselor, psychiatrist, medical case worker, etc.): Kayleigh Florian at [facility] for individual therapy. Development & Family of Origin - Childhood Significant Childhood Events: There was financial stress when she was a child and her mother and father did not get along well with each other. - Family Who currently lives in your home?: Client lives with her and their two daughters. Describe family composition:: Client was raised in [place] and describes her childhood as good. Client's father at age 53, but client's mother is still alive. Client has one brother five years younger and she is close to him. Client got at age 21 and describes her is very supportive. Client and her have two daughters age eight and four. - Family History Family Hx of Psychiatric or AOD Problems: Mom and brother do not express their emotions easily but there is no known psychiatric issues in the entire family. No suicides. No substance abuse issues. Ethnicity - Culture Do you identify yourself with any particular cultural, ethnic background, or community?: No - Sexuality Sexual Orientation: Heterosexual Spirituality - Nondenominational Do you currently identify with any organized mandaen?: Episcopal - Beliefs Is there a particular form of support from this community you can use for your recovery?: Yes Mental Status - Memory Recent Memory: Fair Remote Memory: Fair - Concentration Concentration: Fair - Eye Contact Eye Contact: Good - Speech Speech: Articulate - Thought Process Thought Process: Obsessions, Ruminations Insight: Fair Judgment: Fair Behavior: Anxious - Orientation Orientation: Time, Person, Place, Situation - Appearance Appearance: Neat/clean - Mood Mood: Anxious, Depressed - Affect Affect: Constricted Suicide Assessment - Suicidal Ideation Have you ever felt like hurting yourself?: Yes Were you using ETOH/drugs at the time?: No Suicidal Intentional Rating Scale (SIRS): Suicidal thoughts (past) - Prior to her hospitalization, client reported suicidal ideations, hopelessness, and thoughts of methods to harm self. Denies any suicidal ideations or passive wishes of now. Physician Notification: If Active suicidal thoughts/Will not contract for safety is checked, contact physician and document in the Physician Notification section below. Violent Behavior/Abuse History - Homicidal Ideation Do you have any homicidal thoughts? If so, explain:: No Is there a known potential victim? If yes, who:: No - Abuse Have you ever been abused?: No - Life Events Are there any other significant life events?: Hardships Describe significant life events: Worsening MH symptoms that led to client taking FMLA. This has been extremely hard for client. - Safety Do you ever feel threatened in your home? If yes, describe:: No Adult Social History - Age 17 to Present Describe your current support system:: Client identifies her and several co-workers as her biggest support. Substance Use - Substance Substance Use Type: None Leisure/Social Activities - Interests What do you enjoy or might be interested in learning about?: reading, swimming, hiking, crafts, and volunteering. 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 Service - Service Have you ever been in the ?: No Legal History - Records Have you had any past legal charges?: No Do you have any current legal charges?: No Have you ever been incarcerated? If yes, describe:: No - Court Orders Have you had any past court orders for psychiatric treatment?: No Do you have a present court order for psychiatric treatment?: No Problem Checklist - Current Problem Areas Problem List: Nutritional/Eating pattern changes, Depressed mood/sad, Anxiety, Inattention, Sleep problems, Additional psychosocial stressors Discharge Planning Needs - Anticipated Follow-Up Mental Health Center (Name/Phone Number):: [facility] in [place] Private Therapist/Psychiatrist:: Kayleigh Digital Media Designer's Assessment - Client's Needs What are the client's strengths?: Intelligent, driven, and motivated to improve. Reports feeling like she is finally in therapy for me. Diagnoses - Diagnoses Diagnosis #1:: MDD Diagnosis #2:: SAD Diagnosis #3:: ARLEEN Diagnosis #4:: Panic Disorder Interpretive Summary - Interpretive Summary Interpretive Summary: Client is a 35-year-old female with a history of depression and anxiety who attempted PHP in April 2020, but was discharged and admitted to [facility] from 05/04/20-4/2/21. 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 Client reports extreme anxiety about being off work. Client does report some improvements in symptoms since discharging from [facility]. Client expresses a lot of negative stigma about psychiatric treatment and psychiatric issues. Client reports her biggest stress is the fear of what others will think about her because she had to take off work. For primary support client has her and 2 girlfriends. Client says her marriage is going well but her is overwhelmed by her issues. Client also worries about how her mental health is impacting her daughters. Client says that she has had mood and anxiety worsening this time for this for 3 years in a row. Client reports belief that she santos out on teaching around February or March and she likes things to be perfect and is unable to satisfy herself. Client wakes up anxious and vomits sometimes. Client denies any risk-taking behaviors or increased spending. She denies any grandiosity, irritability, or other symptoms of theresa. Client denies any history of self-harm. Client does endorse feeling depressed, anxious and hopeless. Client reports anhedonia and shared she struggles to enjoy much of anything right now. Her appetite has been decreased and she lost 13 pounds over the past 2 months. Her appetite has improved since inpatient admission as well as her sleep. Client had a medication change while inpatient that client feels is helping. Client no longer has any wishes of or passive SI since being discharged from the hospital. Client denies homicidal ideation, active suicidal ideation, plan for suicide, hallucinations, delusions. Client does endorse feeling anxious and having some restless thoughts and constant rumination. Client denies OCD, eating disorder, trauma or PTSD. Client does not know of any family history of mental health or substance abuse issues. Treatment Plan Recommendations - Recommendations Guidelines: Special needs identified to be included in the development of an individualized treatment plan regarding past psychiatric history and treatment, developmental events, family relationships/events/culture, past and/or current educational, occupational, social, and residential experience, and legal status. Recommendations:: Client will start the partial hospitalization program at [facility] again as the structure, support, education, individual and group therapy will hopefully prevent worsening of client?s symptoms. She felt safe during the interview and if it anytime she does not feel safe she will let us know or go to the emergency room. She will continue the Remeron at its current dose of 45 mg p.o. nightly. Client will not drink any caffeine after 12 noon. She will continue on her gabapentin that was started in the hospital also and her BuSpar. No medication changes were made as medications were recently changed in the hospital 1 week ago.
--- NOTE | 2020-05-16 08:56 | BH.SGPN.GN ---
Behaviors/Verbalizations/Mental Status: [] Eye contact is fair to good. Alert and oriented. Motor activity is appropriate. Appearance is neat and casual. grooming is appropriate. Speech is Appropriate, soft. Mood is anxious and depressed. Affect is congruent. Thoughts are linear and logical. No evidence of psychosis or hallucinations. Reports SI as a 1/5, denies any plan, or intent as of this date. Willing to meet with individual therapist to further assess risk. Client Response/Progress/Benefit: []Pt somewhat engaged in session AEB listening to others and nodding throughout. Appears to connect with other?s discussing difficulties in practicing self-compassion and rigid expectations of self. Client opted not to share during group today however appeared to benefit from supportive group environment. Continues to struggle with anxiety in group setting and distorted thinking. Recommended ongoing IOP tx to improve self-talk, continue to promote anxiety management, and prevent decompensation. Narrative Note: []
--- NOTE | 2020-05-16 10:10 | BH.SGPN.GN ---
Behaviors/Verbalizations/Mental Status: []Alert and oriented. Eye contact is good. Motor activity is appropriate. Appearance is casual. Speech is Appropriate. Mood is depressed and anxious. Affect is constricted. Thoughts are linear and logical. No evidence of psychosis. Client Response/Progress/Benefit: []Pt was an active participant in group discussion and activity. Connected with quote.? Attentive during psychoeducation.? Pt worked with group to identify forces that can impact growth and overall mental health. Pt reported coping skills and healthy people are positive forces in life. Pt shared negative self-talk is a negative force, but this can be challenged. Worked with group to identify other positive and negative internal and external forces of life. Participated in the activity and appeared frustrated at times, but able to cope in the moment.? Pt benefited from increased awareness of the impact positive and negative forces can have on mental health and personal growth. Will continue PHP tx to prevent decompensation, reduce guilt, and improve daily functioning. Narrative Note: []
--- NOTE | 2020-05-16 11:20 | BH.SGPN.GN ---
Behaviors/Verbalizations/Mental Status: []Client alert and oriented, casually dressed and groomed. Eye contact good. Motor activity appropriate. Speech WNL. Affect constricted, mood anxious. Thoughts linear, logical, no signs of hallucinations or delusions. Client Response/Progress/Benefit: []Pt engaged during session AEB pt providing input at times during session, completed worksheet and listened attentively to peers. Group processed the activity and identified positive and negative forces impacting ability to complete the challenge. Pt was attentive during psychoeducation and appeared to benefit from increased insight on the impact of negative and positive forces on mental wellness. Identified positive forces as: healthy supports, therapy, and self-awareness. Struggled with identifying positive forces, needed assistance from therapist. Identified negative forces: negative self-talk and view of self, uncertainty about future, catastrophizing, and worry about what others are thinking. Unable to identify what goal to set to help her decrease strength of a negative force. Pt recommended continued PHP tx to increase use of healthy coping skills, build self-esteem, and prevent decompensation. Narrative Note: []
--- NOTE | 2020-05-16 14:50 | BH.MDN ---
Multi-Disciplinary Note - Note 60-min Individual Time Started:: 12:08 Date: 05/16/20 Purpose of session/treatment goals addressed:: To work on goal #2 of client's tx plan. Another goal was to explore interests and potential hobbies. Eye Contact:: Good Motor Activity:: Appropriate Appearance:: Neat Speech:: Rapid Mood:: Anxious, Dysthymic Affect:: Constricted - fighting back tears Thoughts:: Racing, Other - ruminations and inappropriate guilt, No evidence of hallucinations/delusions noted Staff Interventions:: Reviewed homework from last session and processed client's experience. Provided psychoeducation on maintenance cycles for depression, shame, and anxiety. Used cognitive restructuring and motivational interviewing. Reviewed mindfulness skills and helped client set an opposite action goal for today. Client Response:: Client responded well to session, open to meeting with therapist. Client shared she practiced progressive muscle relaxation and deep breathing yesterday. Client rated her emotions before the skill and after and recognized that both skills reduced anxiety. Client continues to worry about the unknowns of her future, have inappropriate guilt and shame, and not know her worth. Client endorses severe cognitive distortions and mistaken beliefs, but she is only able to recognize them some of the time. Client receptive when therapist uses cognitive restructuring, but she admits that she struggles to see a different perspective. Client connected with psychoeducation on maintenance cycles for shame, depression, and anxiety. Willing to set an oppsite action goal to go for a walk after group today even though she is anxious about seeing someone. Client also is struggling with decision-making and self-identity. 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 Client wants to explore other interests and potentially a different career, but she is terrified of the unknowns and being out of her comfort zone. Processed this and discussed the potential positives of changing expectations, setting short-term goals, and acceptance. Risks/Concerns:: Client denies any suicidal ideations, plan, or intent as of 05/16/20. Client continues to feel depressed and apathetic. Future oriented and family is her protective factor. Progress Toward Goals/Plan:: Second day back in [facility]. Client continues to feel overwhelmed and highly anxious, but she appears to be more attentive and receptive to therapy. Followed through with her homework from yesterday?s session. Client continues to struggle with inability to focus, issues with decision-making, constant worries about the future, and racing thoughts. Endorses low self-worth, inappropriate guilt, and shame. Will continue PHP tx to prevent decompensation, increase application of healthy coping skills, improve decision-making, and improve functioning. Time Stopped:: 13:09
--- NOTE | 2020-05-17 08:19 | BH.MDN_ITS ---
Multi-Disciplinary Note - Note 45-min Individual Time Started:: 12:16 Date: 05/17/20 Purpose of session/treatment goals addressed:: To work on client's distorted thought patterns and develop strategies to reduce anxiety and increase confidence. Eye Contact:: Good Motor Activity:: Appropriate Appearance:: Neat Speech:: Rapid Mood:: Anxious, Dysthymic Affect:: Congruent Thoughts:: Circular, No evidence of hallucinations/delusions noted Staff Interventions:: Therapist reviewed client's homework and response to coping skills. Therapist explored client's stressors and use cognitive restructuring techniques while helping client problem-solve solutions. Therapist gave client homework to complete an assessment on mistaken beliefs. Client Response:: Client responded well to session, open to meeting with therapist. Client shared she went on two walks yesterday, one by herself and one with her daughters. This was significant for client because client has been fearful to be out in public due to worrying about someone seeing her and judging her. Client also completed the G.L.A.D technique which client reported helped her reflect on the positives in her life. Client reports feeling less hopeless, but she continues to feel worthless due to not working. 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 Client recognizes that she needs to make work-life balance more of a priority to prevent relapse. Discussed distorted thoughts that reinforce perfectionism and began challenging these. Client reports because her thoughts have slowed down a bit she is getting better at challenging thoughts. Client stated she feels ready to take on more of a parenting role again at home. Client's functioning has improved as she has been able to drive herself places again. Client receptive to completing an a ssessment on mistaken beliefs. Risks/Concerns:: Client denies any suicidal ideations, plan, or intent as of 05/17/20. Client reports feeling more hopeful. Progress Toward Goals/Plan:: Client reports her mood and outlook are improving. Client feels ready to take on more responsibility at home and in parenting. Client continues to struggle with decision-making, especially regarding work and her future. Client endorses anxiety, racing thoughts that have decreased somewhat in intensity, anhedonia, guilt and worthlessness, and difficulty concentrating. Client will continue PHP tx to promote mood stability and further decrease intensity of symptoms. Time Stopped:: 12:57
--- NOTE | 2020-05-17 10:00 | BH.SGPN.GN ---
Behaviors/Verbalizations/Mental Status: [] Eye contact is good. Motor activity is appropriate. Appearance is casual. Speech is Appropriate. Mood is anxious. Affect is congruent. Thoughts are linear and logical. No evidence of psychosis. Client Response/Progress/Benefit: [] Patient participated at times during group discussions however did participate in group activity. Attentive during discussion on defining self-care and its benefits for mental wellness. Attentive during education and group's discussion on consequences of not performing self-care which included; consistent stress,increased irritability, physical health issues, and negative impact to relationships, work, and other aspects of functioning. After they identified the benefits and consequences group identified the obstacles and myths associated with self-care which keep them from performing self-care. Contributed at times to identifying 10 myths of self-care which included; You don't deserve it; You don't need it; Can't do it unless everything else is completed; Its selfish; Time-consuming; Stuart; It has to be fun; Self-care ignores others. Pt then joined a small group and challenged these myths among its members. Benefited from group by increasing awareness and benefits of self-care. Pt will continue in PHP to maintain safety, improve daily functioning, and decrease panic/anxiety. Narrative Note: []
--- NOTE | 2020-05-17 11:00 | BH.NA ---
Physical Data - Vital Signs Pulse Rate: 83 Blood Pressure: 119/89 - Height/Weight Height: 1.63 m Weight:: 70.307 kg Weight in Pounds: 155.0 lbs Current Medication Compliance - Medication Compliance Do you take your medication as prescribed?: Yes Nutritional History - Appetite Nutritional Instructions:: If client shows signs of a swallowing problem, weight change of 10 pounds or more in the last month, or is on a diabetic diet, the physician will review and request a dietitian consult, as appropriate. All unintentional weight loss will be referred to the physician for decision on need for dietitian consult. Describe your appetite:: Good Additional nutritional information:: Client states she has noticed an increase in her appetite and states she has gained 3lbs since she originally started [facility] program 2 weeks ago. Functional Assessment - Sleep Pattern Describe any problems with sleeping: Client states her sleep has much improved since first being seen in [facility] 2 weeks ago and she is now sleeping 7-8 hours per night. - Activities Motor Activity:: Functional Sensory/Communication Assess - Communication Problems Do you have difficulty understanding what people are saying?: No Medical Problems/History - Pain Assessment Do you have acute or chronic pain?: No Surgical History - Surgical History Have you had any surgeries? If so, list type and date:: Yes - widom teeth, varicose vein Substance Abuse - Substance Abuse Please describe substance abuse in the last 30 days:: Client denies alcohol, tobacco or substance use. Client reports she does drink caffiene daily. Mental Status Summary - Mental Status Significant Findings/Observations on Appearance and Mood:: Client is alert and oriented x4. Client is casually groomed with good hygiene. Client is wearing a mask due to the pandemic. Client is cooperative with assessment. Client makes good eye contact. Client's voice has normal rate and volume. Client makes logical associations with normal processing. Client denies delusions/hallucinations. Client denies SI at this time. Suicide Assessment - Suicidal Ideation Are you currently or have you been suicidal in the past?: Yes - denies SI this day Suicidal Intentional Rating Scale (SIRS): Suicidal thoughts (past) Physician Notification: If Active suicidal thoughts/Will not contract for safety is checked, contact physician and document in the Physician Notification section below. Past Psychiatric History - MH Treatment Hx Past Psychiatric Medications:: Zoloft, Lexapro, Remeron Age of first mental health symptoms: Client states depression symptoms had been seasonal in the past for the past several years, stating the symptoms do not usually last year round. Describe (age, circumstance, etc) any past hospitalizations: Client was recently hospitalized at [facility] from 05/04-05/12/2020. Current providers for mental health treatment (counselor, psychiatrist, director of casework services, etc.): [facility] for a couple of counseling sessions. Fall Risk Assessment - Age Age: Less than 60 - Mental Status Mental Status: Willing & able to ask for assistance when needed - Physical Status Physical Status: No problems - Impairments Impairments: None - Elimination Elimination: Continent AND independent - Gait or Balance Gait or Balance: Walks independently - Hx of Falls History of falls in the past 6 months: No known history - Medications/Substances Psychotropics:: Antidepressants Medications/substances used within the past 24 hours or ordered to administer: 1-2 of the medications/substances listed above - Total Score Total Points:: 1 RN Summary of Impressions - Impressions Recommendations: Include psychiatric and medical issues, treatment planning recommendations, and discharge planning needs. Impressions: Psychiatric Issues: Major depressive disorder, recurrent, severe without psychotic features; panic disorder; generalized anxiety disorder; rule out seasonal affective disorder - Level of Care How do the client's current symptoms and functional deficits support need for this level of care?: Client has previously been to [facility] program for a couple of days, and then voluntarily was admitted to [facility] from 05/04-05/12/2020 for suicidal thoughts. Client had been having panic attacks, client states she has not had any panic attacks since hospitalization. Client has been struggling with decisions and has been off work, which work was a major stressor. Client still appears to have anxiety about work, becoming almost tearful when she speaks about fear about what the future will bring. Client does report physical symptoms of anxiety have improved with medication, as well as suicidal thoughts. Client denies SI at this time. Client reports still increased anxious thoughts internally about her life and career. PHP/IOP will promote gains and prevent further decompensation while providing social supoprt and skills training.
--- NOTE | 2020-05-17 11:10 | BH.SGPN.GN ---
Behaviors/Verbalizations/Mental Status: []Client alert and oriented, casually dressed, hygiene appeared to be tended to. Eye contact good. Motor activity appropriate. Speech within normal limits. Affect constricted, mood anxious. Thoughts linear, logical, no signs of hallucinations or delusions. Client Response/Progress/Benefit: []Client engaged participant AEB client taking notes during discussion and listened attentively to peers. Participated in group discussion on the various areas of self-care, benefits, and types of self-care activities for each area. Client completed worksheet in which client identified current self-care practices and what self-care activities client wants to start using. Client reported she will focus on improving social self-care as client believes this will help client feel connected to her and daughters. Client stated she will do this by going to the park with her family tonight. Appeared to benefit from reflecting on the area of self-care client can improve and setting a small goal. Will continue PHP tx to reduce anxiety and depression, improve use of healthy coping skills, and increase support. Narrative Note: []
[2020-05-17 11:37] VITALS: BP 119/89; PULSE 83
--- NOTE | 2020-05-17 13:06 | PCM.BH.PSYEV ---
Psychiatric Evaluation - Initial Evaluation Initial Evaluation: History of Present Illness: [] Patient is a 35-year-old female with a history of depression and anxiety who participated in the [facility] behavioral health partial hospitalization program a few weeks ago but was admitted to [facility] for worsening depression and suicidal ideation. She was admitted from May 04, 2020 to May 12, 2020. Patient lives with her and her 4 and 8-year-old children. Since her admission she says her restlessness has decreased but she still has some anxiety, depression and racing thoughts. She continues to have some difficulty making decisions and some cognitive distortions. 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 Her anxiety is less now and she has not vomited due to anxiety like she was before. For primary support she has her counselor and her . At the time of her admission she states that she did feel hopeless but feels less hopeless now. She also endorses feeling worthless when she is not working and guilt. She remains depressed but feels she is less depressed than when she went in the hospital on May 04. She is still not enjoying much of anything. Her appetite is okay and her sleep is better and she is getting 7 to 8 hours a night now. Energy level is okay but concentration is still decreased. She denies any suicidal ideation, passive thoughts of , homicidal ideation, hallucinations or delusions now. She denies any symptoms of theresa ever. She is still anxious but is less anxious than she was several weeks ago. She still has some avoidant behavior but denies any panic attacks. She denies OCD, eating disorder, trauma or PTSD. She denies any history of self-harm. The patient states that she feels she would never kill herself due to her children and family. Current Psychiatric Medications: [] Remeron which was increased to 30 and then increased to 45 mg p.o. nightly while the patient was in the hospital (x1 week ago).; Gabapentin 300 mg p.o. twice daily (since May 04, 2020). BuSpar 15 mg p.o. 3 times daily. Past Psychiatric History: [] 1 prior psych admission as dictated above in present illness. No other psych admissions. No suicide attempts ever. She was first depressed she thinks at around age 32. She also remembers having separation anxiety in kindergarten. Her first medications for depression or anxiety were only 1 year ago. She took Lexapro at that time and felt too numb on it. She took Zoloft several weeks ago but it also made her feel too numb. She used Ambien in the past for sleep. The patient states that every year around this time for the past 2 years she has had mood and anxiety symptoms which worsened. 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 Substance Use History: [] Non-smoker. No marijuana use. No alcohol use and no drug use. No rehab ever. Allergies: [] No known allergies. Medications: [] B12 and psych meds as dictated above. Past Medical History: [] [place] teeth surgery only. No medical issues. 2 para 2 with a history of 2 vaginal deliveries with no complications. She has a Mirena IUD for control now and has light menstrual periods. Family Psychiatric History: [] Mother is age 56 and father at age 53 of diabetes mellitus complications. No known psychiatric issues in the entire family but mother and brother do not express their emotions easily. No completed suicides in the family. No substance abuse issues. Personal/Social History: [] The patient continues to have worry about the stigma of psychiatric treatment and is afraid of what others will think of her due to her psychiatric issues. She is not trustful of medications. She was born and raised in [place] and describes her childhood as good. There was financial stress when she was a child and her mother and father did not get along well with each other and were verbally abusive to each other. The patient denies any physical, verbal or sexual abuse ever. She has 1 brother 5 years younger than her and she is close to him. She had separation anxiety when she was taken to kindergarten. She liked school later and did well. 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 She got at age 21 and describes her is very supportive. He is 36 years old and teaches at a middle school. She has 2 children ages 4 and 8. Legal History: [] No arrests. Has [place] driver's license. No DUIs. Review of Systems: [] Negative except as noted in present illness. Vital Signs: [] Reviewed in nurses notes. Mental Status Examination: [] Patient is a 35-year-old female who is seen wearing a mask due to the pandemic. She is casually dressed and groomed with good hygiene. She has no psychomotor agitation or retardation. Eye contact is good and speech is normal rate and rhythm and fluent with no pressure. Mood is depressed. Affect is constricted. Thought process is goal-directed and organized. Thought content: There is no evidence of suicidal ideation or passive thoughts of currently. There is no evidence of homicidal ideation, hallucinations or delusions. Reality testing is intact. Intelligence is average or above. Judgment is intact. Insight: Limited. Impulsivity: Moderate. Diagnoses: [] Botkins I: [] Major depressive disorder, recurrent, severe without psychosis; rule out seasonal affective disorder; panic disorder; generalized anxiety disorder Botkins II: [] Deferred Botkins III: [] Negative Botkins IV: [] Primary support, financial and work issues. Plan: [] The patient will start the partial hospitalization program at [facility] again as the structure, support, education, individual and group therapy will hopefully prevent worsening of the patient's symptoms. She felt safe during the interview and if it anytime she does not feel safe she will let us know or go to the emergency room. The risk, options, possible complications and side effects of medications were discussed with the patient and she understands and accepts these. The patient refused SSRIs as she has had side effects on them and is very concerned about not feeling too numb. She will continue the Remeron at its current dose of 45 mg p.o. nightly. She understands there is a side effect of weight gain but she will continue to eat healthy and exercise regularly. The patient will not drink any caffeine after 12 noon. She will continue on her gabapentin that was started in the hospital also. And her BuSpar. No medication changes were made as medications were recently changed in the hospital 1 week ago. She will continue to follow-up with her outpatient medical and psychiatric providers.
--- NOTE | 2020-05-17 13:18 | BH.PSY.EVA_ITS ---
Initial Treatment Plan - Patient Information Visit Information: ADMISSION DATE: EXPECTED LOS: 4-6 weeks - Problems/Symptoms Problem #1:: Depression Symptom:: Hopelessness, worthlessness, anhedonia, decreased concentration, guil t, history of suicidal ideation. Problem #2:: Anxiety Symptom:: Worry, rumination, avoidant behaviors.
--- NOTE | 2020-05-18 09:00 | BH.SGPN.GN ---
Behaviors/Verbalizations/Mental Status: []Client alert and oriented, more casual appearance than usual. Eye contact good. Motor activity appropriate. Speech within normal limits. Affect constricted, mood anxious. Thoughts linear, logical, no signs of hallucinations or delusions. Reviewed client?s symptom tracker, no risk for suicidal ideation, plan, or intent as of 05/18/20 Client Response/Progress/Benefit: []Client responded well to session, attentive and engaged. Client reports feeling apprehensive this morning as client is doing better, but client still worries about returning to work. Client reports using G.L.A.D, deep breathing, and spending time outside to cope with her anxiety. Client shared she is also taking on more responsibilities again at home and with parenting which shows progress. Appeared to benefit from reflecting on her application of coping skills. Progress noted in client's self-report of having an open-mind towards treatment. Will continue PHP tx to promote mood stability, improve functioning, and reduce symptoms of anxiety. Narrative Note: []
--- NOTE | 2020-05-18 10:10 | BH.SGPN.GN ---
Behaviors/Verbalizations/Mental Status: []Client alert and oriented, casually dressed and groomed. Eye contact good. Motor activity restless. Speech within normal limits. Affect constricted, mood anxious. Thoughts linear, logical, no signs of hallucinations or delusions. Client Response/Progress/Benefit: []Pt mostly passive participant AEB pt providing limited input during session but did appear to listen attentively to peers. Appeared to connect with peers comments about conflict AEB pt nodding head. Pt attentive and engaged during psychoeducation about different conflict styles (avoidant, accommodating, cooperative, and competing). Pt identified when working with others she exhibits a little of all the conflict styles. Pt stated with internal conflict she tends to be competing. Pt seemed to benefit from increased awareness of different conflict styles and impact can have on mental health. Pt to continue PHP to continue use of healthy coping, challenge distorted thoughts and prevent decompensation. Narrative Note: []
--- NOTE | 2020-05-18 11:20 | BH.SGPN.GN ---
Behaviors/Verbalizations/Mental Status: [] Client alert and oriented, casually dressed and groomed. Eye contact fair, often closing eyes as client reports being tired. Motor activity appropriate. Speech within normal limits. Affect congruent, mood anxious. Thoughts linear, logical, no signs of hallucinations or delusions. Client Response/Progress/Benefit: [] Client engaged in session AEB contributing input to discussion which is progress compared to prior sessions, taking notes throughout. Client did well to review current conflict style and it?s impact on mental health. Attentive and taking notes during discussion on strategies for more effectively managing conflict in own life. Client identified wanting to use more collaborating approaches to conflict internally as she often is very hard on herself and has unrealistic expectations with herself. Shared plans to begin working on doing so by improving upon her self-compassion and use more positive self-talk statements. Appeared to benefit from learning strategies to better manage conflict and psychoeducation on CLUES approach to conflict. Will continue IOP tx to continue to improve self-confidence, reduce depressive and anxious symptoms, and improve daily functioning. Narrative Note: []
--- NOTE | 2020-05-18 14:06 | BH.MDN_ITS ---
Multi-Disciplinary Note - Note 45-min Individual Time Started:: 12:11 Date: 05/18/20 Purpose of session/treatment goals addressed:: To process mistaken belief homework and explore self-compassion. Eye Contact:: Good Motor Activity:: Appropriate Appearance:: Casual Speech:: Appropriate Mood:: Euthymic, Anxious Affect:: Congruent Thoughts:: Linear, Logical, No evidence of hallucinations/delusions noted Staff Interventions:: Therapist reviewed client's mistaken belief assessment and processed the findings with client. Therapist used self-compassion to encourage client to be kinder to herself and adjust unrealistic expectations. Therapist reviewed techniques to help client accomplish anxiety-producing tasks. Client Response:: Client responded well to session, open to meeting with therapist. Client shared she went for a walk again last night, practiced deep breathing, and did GLAD again. Client shared these have been helpful and client will continue to use these. Client completed the mistaken belief assessment and gained the following insight about herself: client's self-worth is dependent on others' approval, her self-worth is dependent on external achievements, and she believes she has to be perfect in multiple areas of her life. Processed these and discussed how client can begin to replace these unhelpful beliefs. Client reflected on mistaken beliefs she no longer believes such as she cannot trust or rely on others. Client stated going through this experience has helped client recognize that she is worthy of help. Client receptive to discussion on self- compassion and willing to explore the self-compassion book. Risks/Concerns:: Client denies any suicidal ideations, plan, or intent as of 05/18/20. Reports improved mood and being hopeful. Progress Toward Goals/Plan:: Client continues to demonstrate progress and reports feeling about the same as yesterday. Client is consistent with her homework and application of coping skills. Client will likely begin IOP level of care next week if she can continue making progress. Continues to endorse indecisiveness, especially regarding work and her future. Client endorses anxiety, racing thoughts that have decreased somewhat in intensity, guilt and worthlessness, and difficulty concentrating. Will continue PHP tx and continue to evaluate progress with the goal to step down to IOP level of care. Time Stopped:: 13:00
--- NOTE | 2020-05-19 09:00 | BH.SGPN.GN ---
Behaviors/Verbalizations/Mental Status: []Client alert and oriented, casually dressed. Eye contact fair. Motor activity appropriate. Speech within normal limits. Affect congruent, mood anxious and euthymic. Thoughts linear, logical, no signs of hallucinations or delusions. Reviewed client?s symptom tracker, no risk or thoughts of suicide ideation, plan, or intent as of 05/19/20. Client Response/Progress/Benefit: []Client responded well to session, engaged throughout and participated in group discussion. Client reported feeling ?nervous and hopeful? this morning. Client benefited from group as client connected with peers about feeling anxious to return to work and feeling ?sure if mentally ready? to go back. Client plans to go back to work one day next week to reconnect with co-workers. Progress noted as client reported challenging her cognitive distortions as client is fearful of being judged by other co-workers but does not have any facts to prove her distortions correctly. Client cortez by using deep breathing techniques. Client identified her mental health positives as ?no longer using suicide as an option to cope? as well as rewarding her one week since being hospitalized. Client will continue PHP to prevent decompensation, promote the use of healthy coping skills, and reduce negative thinking patterns. Narrative Note: []
--- NOTE | 2020-05-19 10:10 | BH.SGPN.GN ---
Behaviors/Verbalizations/Mental Status: []Client alert and oriented, casually dressed and groomed. Eye contact good. Motor activity appropriate. Speech within normal limits. Affect congruent, mood depressed and anxious. Thoughts linear, logical, no signs of hallucinations or delusions. Client Response/Progress/Benefit: []Client was an engaged participant AEB taking notes and contributing to discussion. Connected with group topic of perspective and the impacts of one?s perspective on mental health. Client noted struggling with only seeing things in the negative and noted this has impacted her ability to practice self-compassion. Client worked with the group to identify how a negative perspective can impact mental health which included: self-fulfilling prophecy, avoiding or giving up on treatment, not opening up to others, and withdrawing or isolating. Client reported low self-esteem as result of negative perspective. Client appeared to benefit from increasing understanding of mental health benefits of a positive perspective and potential consequences to progress when perspective is negative. Progress noted in self-report of improved thought challenging. Continues to struggle with combating distortions and negative core beliefs. Client will continue IOP tx to promote gains, improve self-compassion, improve healthy coping, and reduce negative thinking. Narrative Note: []
--- NOTE | 2020-05-19 11:10 | BH.SGPN.GN ---
Behaviors/Verbalizations/Mental Status: []Eye contact is good. Alert and oriented. Motor activity is appropriate. Appearance is neat. grooming is appropriate. Speech is Appropriate. Mood is anxious. Affect is constricted. Thoughts are linear and logical. No evidence of psychosis or hallucinations. Client Response/Progress/Benefit: []Pt engaged participant AEB pt providing input throughout session, listening attentively to peers and completing strengths exploration handout. Pt did struggle to identify strengths and client recognizes that she tends to disqualify her positives. Pt shared some of the strengths she identified were honesty, organization, and being detailed oriented. Pt stated these strength help her implement healthy coping skills, increase self-awareness, and remember coping skills. Pt seemed to benefit from increased awareness of personal strengths and improved understanding how perspective can impact view of self. Pt is to continue PHP tx to promote mood stability, further decrease symptoms, and improve daily functioning. Narrative Note: []
--- NOTE | 2020-05-19 14:37 | BH.MDN_ITS ---
Multi-Disciplinary Note - Note 45-min Individual Time Started:: 12:13 Date: 05/19/20 Purpose of session/treatment goals addressed:: To work on goal #1 of client's tx plan. Eye Contact:: Good Motor Activity:: Appropriate Appearance:: Neat Speech:: Appropriate Mood:: Anxious Affect:: Constricted Thoughts:: Circular, No evidence of hallucinations/delusions noted Staff Interventions:: Therapist reviewed client's homework and application of coping skills. Therapist explored client's worries and anxious thoughts about work. Therapist used solution-focused techniques to help client problem-solve and identify strengths to overcome potential stressors. Therapist encouraged client to continue practicing coping skills and try new activities. Client Response:: Client responded well to session, open to meeting with therapist. Client's ability to use calming skills and challenge negative thinking has improved. Client recognizes this, but is still highly anxious about work and struggling with decision making. Client willing to write out her worries and anxious thoughts regarding return to work. Client's biggest worry was not being able to make it through the workday due to her anxiety. Client has been sharing the fear that I can't trust myself because of how severe her mental health symptoms have been. Processed these worries and combated them with evidence. Client recognized that her functioning has improved, and she has evidence to prove that she can trust herself. Client able to identify other strengths, supports, and areas of progress that will help client overcome stressors. Client also continues to struggle with not knowing who she is or what she wants. Client receptive to exploring different activities on a trial basis. Risks/Concerns:: Client denies any suicidal ideations, plan, or intent as of 05/19/20. Progress Toward Goals/Plan:: Client continues to demonstrate progress and reports being more optimistic about the future. However, she is still highly anxious about work and continues to struggle with indecisiveness. Also continues to have guilt, circular thinking, and negative core beliefs. Client has been consistent with homework and reports benefitting from the calming skills. Client will continue PHP through Friday05/22/20 and then transition to [facility] level of care. Time Stopped:: 12:53
--- NOTE | 2020-05-22 09:03 | BH.SGPN.GN ---
Behaviors/Verbalizations/Mental Status: []Client alert and oriented, casually dressed. Eye contact fair. Motor activity appropriate. Speech within normal limits. Affect congruent, mood euthymic. Thoughts linear, logical, no signs of hallucinations or delusions. Reviewed client?s symptom tracker, client denies current suicidal ideation, plan or intention. Client Response/Progress/Benefit: []Pt responded well to session AEB pt listening attentively to peers and openly sharing thoughts and feelings. Pt reported she accomplished her goal of spending time outside with her family. Pt reported she is starting to feel like her normal self. 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 Pt reported she is continuing to prove to herself that she is capable to do her job. Pt stated she utilized skills of opposite action and challenging distorted thoughts. Identified feeling optimistic. Pt to continue PHP to maintain gains, continue use of healthy coping and prevent decompensation. Narrative Note: []
--- NOTE | 2020-05-22 10:10 | BH.SGPN.GN ---
Behaviors/Verbalizations/Mental Status: [] Eye contact is good. Motor activity is appropriate. Appearance is neat. Speech is Appropriate. Mood is anxious. Affect is congruent. Thoughts are linear and logical. Client Response/Progress/Benefit: [] Pt was an active participant in group discussions and activity. Attentive during psychoeducation and provided insight into obstacles in the way of mental wellness. Pt shared her picture and description of her current reality with the group. She described her currently reality as being stuck at the fork in the road. She described being unsure, indecisive, and anxious about which direction to go. She related this to her current mental health symptoms and functioning in general. She believes that she has seen improvement in the past 3 weeks. Identified her desired reality as choosing a path which is straight and not winding. Desired reality would include increased self-awareness and more confidence in managing her cognitive distortions and negative self-talk. Progress noted per pt report. Benefited from taking look at current mental health state and obstacles for progress. Will continue in PHP to maintain safety, prevent decompensation, and to improve functioning to return to work. Narrative Note: []
--- NOTE | 2020-05-22 11:10 | BH.SGPN.GN ---
Behaviors/Verbalizations/Mental Status: []Client alert and oriented, neatly dressed and groomed. Eye contact good. Motor activity appropriate. Speech within normal limits. Affect congruent, mood anxious. Thoughts linear, logical, no signs of hallucinations or delusions. Client Response/Progress/Benefit: []Client was an active participant in group discussion and activity. Engaged during activity and provided ideas on how to cope with internal barriers that keep clients stuck from moving towards goals. Barriers identified by client included: negative self-talk, comparing self to others, and unrealistic expectations. Strategies identified for overcoming these barriers included: self-compassion, thought challenging, grounding, and opposite action. Client wants to work on overcoming the barrier of negative self-talk by practicing thought challenging. Benefited from group by identifying obstacles and solutions to desired reality. Will continue tx to promote gains made in PHP, further reduce symptoms, and improve mood. Narrative Note: []
--- NOTE | 2020-05-22 13:38 | BH.MDN ---
Multi-Disciplinary Note - Note 45-min Individual Time Started:: 12:08 Date: 05/22/20 Purpose of session/treatment goals addressed:: To review PHP goals, progress, and plan of care moving forward. To identify interests/hobbies of interest to client. Eye Contact:: Good Motor Activity:: Appropriate Appearance:: Neat Speech:: Rapid Mood:: Euthymic Affect:: Congruent Thoughts:: Linear, Logical, No evidence of hallucinations/delusions noted Staff Interventions:: Therapist explored client's view of progress and discussed plan of care moving forward. Therapist used strengths perspective to empower client on her progress and application of skills. Reviewed self-care balance and adjusting expectations. Explored hobbies/interests that client might enjoy and promote self-identity. Client Response:: Client responded well to session, open to meeting with therapist. Client reports feeling much better since the beginning of PHP. Client reports improved mood, more hopeful outlook, less isolation, reduced racing thoughts, no suicidal ideations, and increased functioning. 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 Client endorses little anxiety about seeing co-workers which is significant progress. Client is beginning to experience less shame about her mental health tx, but still struggles with guilt and shame at times. Client completed her homework from last session and explored activities/hobbies she would be interested in. Client is interested in making playlists, learning to swim, book of the month, taking a craft class, and volunteering. Discussed ongoing goals for IOP which would be to further improve mood, increase work-life balance, and combat negative self-talk. Risks/Concerns:: Client denies any suicidal ideations, plan, or intent as of 05/22/20. Progress Toward Goals/Plan:: Client has accomplished PHP goals AEB self-report of reduced intensity of symptoms and improved functioning. Client's functioning has improved to the point that she feels confident enough to return to work part-time. Client does continue to endorse symptoms of anxiety including difficulty making decisions and constant worry. Client's symptoms of depression are resolving, but there are still symptoms of guilt, low self-esteem, and disconnect that is decreasing. Time Stopped:: 12:48
--- NOTE | 2020-05-22 13:39 | BH.DS ---
Discharge Summary - Demographics Date of Admission:: 05/15/20 Discharge Date: 05/22/20 Presenting Problems at Admission:: Client is a 35-year-old female with a history of depression and panic disorder. Client was recently admitted to [facility] from 05/04/20-05/12/20 due to increased hopelessness and suicidal ideations with methods. Client reports since discharging from [facility] she no longer feels suicidal and she reports fewer physical symptoms of anxiety. Client continued to report significant issues with lack of concentration, worries about the future, inappropriate guilt, hopelessness, racing thoughts, and anxiety. Client reported not feeling like she has direction in life and did not feel like she knows who she is. Client continued to feel overwhelmed and struggles with decision making. Client was unable to function at her baseline at home and is on leave from work. Discharge Diagnoses:: Major depressive disorder, recurrent, severe without psychosis F 33.2; rule out seasonal affective disorder; panic disorder; generalized anxiety disorder Reason for Discharge:: Client's functioning at home has improved and client's symptoms are beginning to resolve and decrease. Client has accomplished her treatment goals. Client no longer meets criteria for [facility] level of care. - Treatment Progress During Treatment & Response: Client has made significant progress in PHP AEB her self-report of improved functioning, reduced racing thoughts, no suicidal ideations, a more hopeful outlook, better management of symptoms, and increased ability to challenge distortions. Client has been active in group and individual therapy sessions and she is consistent with homework. Client has good attendance as well. Client has progressed enough to be able to return to work part-time which client will start within the next two weeks. Issues Still to be Addressed:: Client will continue IOP tx to promote gains made in PHP in reducing anxiety and depressive symptoms. Client will also continue to work on increasing self-worth, building meaningful hobbies, and challenging distorted thought patterns. Client will continue to work on setting healthy boundaries and combatting unrealistic expectations to help client transition back to work. Discharge Recommendations/Instructions:: Client will transition to [facility] level of care to promote gains made in PHP. Discharge Handout: Complete Discharge Handout with client on aftercare options and continuity of care.
--- NOTE | 2020-05-23 09:10 | BH.SGPN.GN ---
Behaviors/Verbalizations/Mental Status: [] Eye contact is good. Motor activity is appropriate. Appearance is casual. Speech is Appropriate. Mood is anxious. Affect is congruent. Thoughts are linear and logical. No evidence of psychosis. Reviewed daily check in sheet and no reports of suicidal ideations or intent. Client Response/Progress/Benefit: [] Pt was an active participant in group discussion. Attentive. Provided appropriate feedback. Emotion for today is optimistic. Mental health wins include researching hobbies. States that over the past several months she has lost herself and wants to get back into things that are pleasurable. 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 Identified 3 potential hobbies. Continues to struggle with idle time. Overall restless and uncomfortable however notes improvement since starting PHP. Thoughts are cleared. Less stigma associated with mental health. Plan is to meet with psychiatrist tomorrow and step down to IOP. Progress noted. Peers remarked how they have seen nopted improvement this week. Benefited from support and praise. Narrative Note: []
--- NOTE | 2020-05-23 11:04 | BH.SGPN.GN ---
Behaviors/Verbalizations/Mental Status: []Client alert and oriented, neatly dressed and groomed. Eye contact good. Motor activity appropriate. Speech within normal limits. Affect congruent, mood euthymic and anxious. Thoughts linear, logical, no signs of hallucinations or delusions. Client Response/Progress/Benefit: []client receptive to session, listening attentively to others and providing input. Participated as the group brainstormed the positive and negative aspects of stress on physical and mental health. Group worked together to define stress and provided input during discussion about eustress vs distress. Client identified personal stressors which included: work, family, comparing self to others, lack of self-care, and mental health. Client reports that several weeks ago, her stress jar was overflowing and client had a ?breakdown.? Client now recognizes that she can create a better balance of work, family, and self-care and she no longer feels like her stress jar is overflowing. Seemed to benefit from increased awareness of current stressors and impact of too much stress on the mind and body. Recommended to transition to IOP tx to promote gains, reinforce healthy coping skills, and further decrease negative self-talk. Narrative Note: []
--- NOTE | 2020-05-23 11:12 | BH.SGPN.GN ---
Behaviors/Verbalizations/Mental Status: []Client alert and oriented, casually dressed and groomed. Eye contact good. Motor activity WNL. Speech within normal limits. Affect congruent, mood anxious. Thoughts linear, logical, no signs of hallucinations or delusions. Client Response/Progress/Benefit: []Client engaged in session AEB listening attentively to others, providing input, and taking notes throughout. Client remained attentive during discussion about the 4 A's of managing stress and discussed connecting with the various benefits of each. Client stated she wants to work on stressor of worrying about other?s opinions of her. Client reported she is going to adapt her mindset by using more self-compassionate language and reminding herself she has no evidence that others are judging her. Shared she could also practice acceptance that she is allowed to take time off of work to prevent second-guessing herself and relying on external validation. Client seemed to benefit from increased awareness of the impact of stress on mental health and increasing repertoire of stress management strategies. Client is to continue treatment to continue focusing on setting realistic expectations, challenging distorted thoughts and prevent decompensation. Narrative Note: []
--- NOTE | 2020-05-24 12:06 | PCM.BH.PN ---
Progress Note Progress Note: History of Present Illness/Interim History: [] Patient is a 35-year-old female who is seen in follow-up at the [facility] behavioral health partial hospitalization program. I last saw the patient 1 week ago. The patient states that she is feeling less anxiety and feels that her symptoms overall are much improved. She feels that her mood is much less depressed and now. She feels that she is functioning much better now. She has much less restlessness now also. She has some anxiety still present but she has not had any emesis or even dry heaves due to anxiety. The patient is currently at a meeting at her workplace today as part of her plan to get back to work 2 days a week and she feels that she will be able to do this. The patient feels that since the medications have helped her improved she is able now to get more benefit out of the groups at the [facility] program. She denies passive thoughts of , suicidal ideation, homicidal ideation, hallucinations or delusions. She denies any panic attacks. Current Psychiatric Medications: [] Remeron 45 mg p.o. nightly (x2 weeks now); gabapentin 300 mg p.o. twice daily; BuSpar 15 mg p.o. 3 times a day. Mental Status Examination: [] Patient is a 35-year-old female who is seen wearing a mask due to the pandemic and is casually great dressed and groomed with good hygiene. She has no psychomotor agitation or retardation. Eye contact is good and speech is normal rate and rhythm and fluent with no pressure. Mood is mildly depressed. Affect is full and normal. Thought process is goal-directed and organized. Thought content: There is no evidence of suicidal or homicidal ideation. There is no evidence of passive thoughts of . There is no evidence of hallucinations or delusions. Judgment is intact. Insight: Improving. Impulsivity: Moderate. Diagnoses: [] [place] I: [] Major depressive disorder, recurrent, severe without psychosis; rule out seasonal affective disorder; panic disorder; generalized anxiety disorder [place] II: [] Deferred [place] III: [] Negative [place] IV:[]] Primary support, financial and work issues Plan: [] The patient is felt to have improved enough to be discharged from the partial hospitalization program and stepped down to the intensive outpatient program. This decision was made after discussion with staff. No medication changes were made today but the patient was given refills for 30 days with 1 refill on all 3 of her current medications. She will continue to follow-up with outpatient medical and psychiatric providers. She understands still that there is a side effect of weight gain with the Remeron but she will continue to eat healthy and exercise regularly.
== END 2020-05-24 11:00 | disposition home or self-care (01) ==
LOC: BHPHP 09:00
PROVIDERS: Referring Provider Psychiatry & Neurology Psychiatry; Visit Provider Psychiatry & Neurology Psychiatry
DX: F33.2 Major depressive disorder, recurrent severe without psychotic features (principal); F41.1 Generalized anxiety disorder; F41.0 Panic disorder [episodic paroxysmal anxiety]; Z79.899 Other long term (current) drug therapy
CPT/HCPCS: H0035; 90834; 90837; G0410

== ENCOUNTER 2020-05-25 09:00 | Outpatient (RCR) | payer OTHER, SELFPAY ==
[2016-03-21 06:17] VITALS: BMI 35.7
--- NOTE | 2020-05-25 10:15 | BH.SGPN.GN ---
Behaviors/Verbalizations/Mental Status: []Client alert and oriented, causally dressed and groomed. Eye contact good. Motor activity appropriate. Speech within normal limits. Affect constricted, mood anxious. Thoughts linear, logical, no signs of hallucinations or delusions. Client Response/Progress/Benefit: []Client enagaged participant AEB client providing input at times and listened attentively to others. Group gave examples of unhealthy coping skills. Listened as group identified the following as reasons unhealthy skills are used: instant gratification, easy, escape reality, survival, feels good, learned behavior and habitual. Client participated in the group activity and connected that a healthy foundation of coping skills is composed of healthy internal and external coping skills. Client stated if challenge negative thoughts you can decrease negativity in your life. Client seemed to benefit from increased awareness of the importance of increasing healthy coping skills and consequences of utilizing unhealthy coping skills. Today pt transitioned from PHP to IOP. Progress noted with increased awareness and better able to challenge negative thoughts. Will continue IOP tx to prevent decompensation, decrease anxiety, and challenge distorted thoughts. Narrative Note: []
--- NOTE | 2020-05-25 11:15 | BH.SGPN.GN ---
Behaviors/Verbalizations/Mental Status: []Client alert and oriented, neatly dressed and groomed. Eye contact good. Motor activity appropriate. Speech within normal limits, quiet. Affect congruent, mood anxious and euthymic. Thoughts linear, logical, no signs of hallucinations or delusions Client Response/Progress/Benefit: []Client responded well to session, taking notes and contributing. Group discussed the different categories of coping skills which included distraction, emotional release, grounding, self-love, and thought challenging. Client participated in creating a coping skills ?menu? from the five categories of coping skills. Client's coping skill menu included: reading, talking to support, stopping to breathe, self-compassion, and thought log. Client has been using the first three skills, but she wants to get better at challenging negative self-talk. Appeared to benefit from increasing repertoire of healthy coping skills. Will continue tx to further improve daily functioning, increase confidence as client returns to work, and combat distortions. Narrative Note: []
--- NOTE | 2020-05-25 15:06 | BH.MTP_ITS ---
Master Treatment Plan - Patient Information Program Physician:: Dr. Amarilys Lara Primary Therapist:: Marce LOGAN - Psychiatric Diagnoses Psychiatric Diagnoses:: Major depressive disorder, recurrent, severe without psychosis F 33.2; rule out seasonal affective disorder; panic disorder; generalized anxiety disorder Diagnosis Code(s):: F 33.2 - Estimated LOS Estimated LOS (in weeks):: 6 Problem/Goal #1 - Problem/Goal #1 Stated Goal:: Reduce intensity and duration of anxiety to improve overall functioning. Description of Barriers: Client is improving, but still continues to struggle with worrying about what other people think. Client also admits to perfectionist tendencies and endorses negative thinking patterns. Client continues to struggle with lack of confidence in her decision making. 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 Functional Impact: Client is a 35-year-old female with a history of depression and panic disorder. Client was recently admitted to [facility] from 05/04/20-05/12/20 due to increased hopelessness and suicidal ideations with methods. Client reports since discharging from [facility] she no longer feels suicidal and she reports fewer physical symptoms of anxiety. Client completed a week of PHP and did well with utilizing coping skills which resulted in symptom reduction. However, client continues to report issues with lack of concentration, worries about the future, inappropriate guilt, and anxiety. Client continues to second-guess herself and struggles with decision making. Client?s functioning is improving, but it is still not at her baseline. Goal Relevant Strengths/Supports: Completed PHP with positive results. Increased ability to function at home and is more hopeful about work. Family support and using coping skills. - Objectives Objective #1 Stated Objective: Client will identify 2-3 cognitive distortions that lead to worries about the future and learn 2-3 ways to manage these thoughts to better manage anxiety as shown by reduced DSM-5 scores for anxiety. Interventions: Therapist will provide education on the most common cognitive distortions and teach client the connection between thoughts, emotions, and feelings. Therapist will assist client in identifying, challenging, and replacing dysfunctional thoughts with positive, more realistic thoughts. Therapist will use CBT and DBT techniques to help client gain awareness of thinking errors and learn how to more effectively handle negative thoughts. Therapist will also use self-compassion to help client set more realistic expectations for herself. Discharge Criteria: Client will have accomplished this goal when can identify at least 2 cognitive distortions and at least 2 coping skills to manage negative thoughts. Target Date: 06/28/20 Review Date: 06/14/20 Status: open Objective #2 Stated Objective: Client will increase self-care to reduce anxiety by setting 2- 3 small goals a week. Interventions: Therapist will help client explore interests and hobbies that will promote self-care. Therapist will use motivation interviewing to encourage positve change and maintenance when client returns to work. Discharge Criteria: Client will have met this goal when she can verbalize accomplishing at least 2 self-care activities a week. Target Date: 06/28/20 Review Date: 06/14/20 Status: open Problem/Goal #2 - Problem/Goal #2 Stated Goal:: Client will reduce depression, guilt, and negative self-talk. Description of Barriers: Client is improving, but still continues to struggle with worrying about what other people think. Client also admits to perfectionist tendencies and endorses negative thinking patterns. Client continues to struggle with lack of confidence in her decision making. 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 Functional Impact: Client is a 35-year-old female with a history of depression and panic disorder. Client was recently admitted to [facility] from 05/04/20-05/12/20 due to increased hopelessness and suicidal ideations with methods. Client reports since discharging from [facility] she no longer feels suicidal and she reports fewer physical symptoms of anxiety. Client completed a week of PHP and did well with utilizing coping skills which resulted in symptom reduction. However, client continues to report issues with lack of concentration, worries about the future, inappropriate guilt, and anxiety. Client continues to second-guess herself and struggles with decision making. Client?s functioning is improving, but it is still not at her baseline. Goal Relevant Strengths/Supports: Completed PHP with positive results. Increased ability to function at home and is more hopeful about work. Family support and using coping skills. - Objectives Objective #1 Stated Objective: Client will learn and utilize 2-3 healthy coping strategies to better manage depressive symptoms as shown by a reduced DSM-5 scores for depression. Interventions: Through group and individual sessions, therapist will help client identify triggers and warning signs of depression and emotional dysregulation including emotional, physical, and behavioral changes. Therapist will teach client various coping skills to manage her symptoms and give client tangible resources to use to regulate emotions. Therapist will use cognitive restructuring techniques and help client gain awareness of negative thoughts that reinforce guilt and depression. Therapist will provide psychoeducation on maintenance cycles and help client learn ways to break unhealthy maintenance cycles. Therapist will help client incorporate behavioral activation and assist client in setting SMART goals. Discharge Criteria: Client will have met this goal when she can report learning and using at least 2 coping skills to manage depressive symptoms. Additionally, client will have met this goal when her depressive symptoms have reduced on the DSM-5 scale. Target Date: 06/28/20 Review Date: 06/14/20 Status: open Objective #2 Stated Objective: Client will identify at least 2-3 negative self-talk messages used to reinforce negative core beliefs and replace thoughts with positive, realistic messages. Interventions: Therapist will help client identify distorted, negative beliefs about self and replace with more realistic, affirmative messages. Therapist will use CBT to help client increase insight to the connection between thoughts, emotions, and behaviors. Therapist will also use dialectical thinking to help client combat all or nothing expectations. Therapist will encourage client to practice thought challenging. Discharge Criteria: Client will have achieved this goal when can verbalize at least 2 negative self-talk messages and effectively replace those thoughts with affirmative messages. Target Date: 06/28/20 Review Date: 06/14/20 Status: open
--- NOTE | 2020-05-25 15:06 | BH.MDN ---
Multi-Disciplinary Note - Note 30-min Individual Time Started:: 09:20 Date: 05/25/20 Purpose of session/treatment goals addressed:: To work on catching and combatting client's distorted thought patterns using a thought log. Another goal was to discuss plan of care and return to work. Eye Contact:: Good Motor Activity:: Appropriate Appearance:: Neat Speech:: Appropriate Mood:: Euthymic Affect:: Congruent Thoughts:: Linear, Logical, No evidence of hallucinations/delusions noted Staff Interventions:: Therapist used active listening and open-ended questions to explore how client's visit to work went yesterday. Therapist explored client's thoughts on returning to work and plan of care moving forward. Therapist introduced a thought log as a technique client can use to challenge negative self-talk and unrealistic expectations. Client Response:: Client responded well to session, open to meeting with therapist. 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 Client reports feeling confident in returning to work on a part-time basis. Client feels ready to do this, although she is still somewhat anxious and uncertain about the future. Client able to recognize anxious thoughts and has been doing well to combat these. Client and therapist will work on a return to work plan tomorrow as client wanted to learn about thought logs today. Client was introduced to one kind of thought log and was given homework to challenge three negative thoughts before Friday. Client will pay particular attention to negative self-talk such as unrealistic expectations and comparing self to others. Risks/Concerns:: Client denies any suicidal ideations, plan or intent as of 05/25/20. Progress Toward Goals/Plan:: Client continues to make progress AEB her self-report of reduced intensity of symptoms, improved functioning at home, and desire to return to work part-time. 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 Client continues to report anxiety, still some issues with decision making, guilt that has decreased, and worries. Will return to work part-time starting next week. Will come to [facility] tx three days a week starting next week to promote gains and further improve functioning. Time Stopped:: 09:50
--- NOTE | 2020-05-26 09:05 | BH.SGPN.GN ---
Behaviors/Verbalizations/Mental Status: [] Eye contact is good. Motor activity is appropriate. Appearance is casual . Speech is Appropriate. Mood is anxious. Affect is congruent. Thoughts are linear and logical. No evidence of psychosis. Reviewed daily check in sheet and no reports of suicidal ideations or intent. Client Response/Progress/Benefit: [] Pt participated at times during the group discussion. Attentive. Emotion for today is content. Pt states I'M good. Returned to work on Friday which she reports went well. Reports that all of her worst case scenarios and negative what ifs did not occur. States that was able to seen that she was catastrophizing. Able to challenge some her stigma regarding mental health as well. This was a positive step for patient and she reports that she is proud of herself. Utilizing skills such as thought reframing and self-care. Progress noted. Will continue in IOP to maintain safety, increase healthy coping, and improve functioning to return to work full-time. Narrative Note: []
--- NOTE | 2020-05-26 10:05 | BH.SGPN.GN ---
Behaviors/Verbalizations/Mental Status: []Client alert and oriented, neatly dressed and groomed. Eye contact good. Motor activity appropriate. Speech within normal limits. Affect constricted, mood euthymic and anxious. Thoughts linear, logical, no signs of hallucinations or delusions. Client Response/Progress/Benefit: []Pt was an active participant in group discussion and completed group worksheet. Attentive. Provided appropriate feedback. Group worked together to define anger and discussed the ways anger can impact one internally and externally. Pt identified feeling insecure, overwhelmed, jealous, and uncertain as being internal events or feelings that can lead to anger. Pt also identified external ways that pt commonly expresses anger which includes: giving the ?silent treatment,? raising her voice, being impatient, and minimizing. Benefited from group by increasing understanding of the impact of anger on mental health. Will continue in IOP to prevent decompensation, increase healthy coping, and improve work-related functioning. Narrative Note: []
--- NOTE | 2020-05-26 10:10 | BH.SGPN.GN ---
Behaviors/Verbalizations/Mental Status: []Client alert and oriented, casually dressed and groomed. Eye contact fair to good. Motor activity appropriate. Speech within normal limits. Affect congruent, mood anxious and dysthymic. Thoughts linear, logical, no signs of hallucinations or delusions. Client Response/Progress/Benefit: []Pt was engaged throughout AEB contributing to group discussion and self-reflection. Pt contributed as group brainstormed healthy coping skills for better managing anger which included: music, walking/exercise, changing the environment, communicating with supports, and journaling. Pt appeared to benefit from identifying different techniques to manage anger as well as gaining awareness of potential consequences of unmanaged anger. Pt selected taking a step away before addressing the trigger as the coping skill pt would like to try to regulate anger. Progress noted as pt reports increased self-care and reduced negative self-talk, but pt continues to struggle with self-compassion. Will continue IOP tx to promote the use of healthy coping skills and further decrease negative thinking. Narrative Note: []
--- NOTE | 2020-05-26 11:21 | BH.MDN ---
Multi-Disciplinary Note - Note 30-min Individual Time Started:: 09:45 Date: 05/26/20 Purpose of session/treatment goals addressed:: To create a return to work coping skills plan. Eye Contact:: Good Motor Activity:: Appropriate Appearance:: Casual Speech:: Appropriate Mood:: Euthymic, Anxious Affect:: Congruent Thoughts:: Linear, Logical, No evidence of hallucinations/delusions noted Staff Interventions:: Therapist created a worksheet template that included warning signs, coping skills, self-care, and external support to help client return to work. Therapist explored these different areas with client and client will complete the rest for homework. Client Response:: Client responded well to session, reports that she continues to feel better and more able to cope. Reports she no longer has racing thoughts and is more confident in her ability to function at school and home. Client willing to work on her return to work coping plan. Client identified her warning signs which included: avoidance, procrastination, self-doubt, reassurance seeking, over-working, and lack of sleep. Client identified her external supports at work which included two co-workers and her bosses. Client also identified back-up plans that she can turn to if her symptoms get worse at work. Client recognizes that having a regular self-care routine and having outpatient mental health providers will act as a safety net to keep client well. Risks/Concerns:: Client denies any suicidal ideations, plan, or intent as of 05/26/20. Progress Toward Goals/Plan:: Client continues to make progress AEB her self-report of reduced intensity of symptoms, improved functioning at home, and plan to return to work part-time. Client continues to report anxiety, still some issues with decision making, guilt that has decreased, and worries. Will return to work part-time starting next week. Will come to [facility] tx three days a week starting next week to promote gains and further improve functioning. Time Stopped:: 10:15
--- NOTE | 2020-05-31 10:08 | BH.SGPN.GN ---
Behaviors/Verbalizations/Mental Status: []Client alert and oriented, casually dressed and groomed. Eye contact good. Motor activity appropriate. Speech within normal limits. Affect constricted, mood euthymic. Thoughts linear, logical, no signs of hallucinations or delusions. Client Response/Progress/Benefit: []Client engaged throughout session AEB providing input when prompted. Appeared to connect with discussion on crisis and how unhealthy coping could result in a personal crisis. Group reflected on the importance of having awareness of personal warning signs in order to prevent reaching crisis point. Group identified potential warning signs for crisis and client completed the personal warning signs worksheet. Client identified personal crisis warning signs to include: negative thinking, feeling disconnected and apathetic, and lack of motivation. Client reports that she has been using healthy coping skills more consistently and this has helped prevent client from being in crisis. Client benefited from increasing awareness of what leads to crisis and personal warning signs. Client will continue IOP tx to reinforce healthy coping skills, improve work-related functioning, and further reduce negative self-talk. Narrative Note: []
--- NOTE | 2020-05-31 11:08 | BH.SGPN.GN ---
Behaviors/Verbalizations/Mental Status: []Client alert and oriented, casually dressed and groomed. Eye contact good. Motor activity appropriate. Speech within normal limits. Affect constricted, mood euthymic. Thoughts linear, logical, no signs of hallucinations or delusions Client Response/Progress/Benefit: []Client responded well to session as evidenced by client listening attentively to others and providing ideas for coping skills throughout session. Client identified warning signs for crisis and gained further awareness of earliest warning signs. Client used the warning signs: negative thinking, feeling disconnected, and loss of motivation to create personal crisis plan. Client?s action plan included: opposite action, reaching out to support, thought challenging, affirmations, and grounding techniques. Client plans to take a picture of her crisis plan, so she will always have it and she plans to share it with her . Client appeared to benefit from creating a crisis action plan and increasing self-awareness. Client will continue IOP tx to promote gains, further improve mood stability, and increase self-confidence. Narrative Note: []
--- NOTE | 2020-05-31 12:24 | BH.MDN_ITS ---
Multi-Disciplinary Note - Note 30-min Individual Time Started:: 09:30 Date: 05/31/20 Purpose of session/treatment goals addressed:: To discuss medication concerns and review healthy coping skills to manage anxiety. Another goal was to process client's return to work. Eye Contact:: Good Motor Activity:: Appropriate Appearance:: Casual Speech:: Appropriate Mood:: Euthymic Affect:: Congruent Thoughts:: Linear, Logical, No evidence of hallucinations/delusions noted Staff Interventions:: Explored client's medication concerns and communicated these with IOP nurse. Reviewed healthy coping skills for managing anxiety, depression, and self-care. Processed client's first day back to work and her emotions. Provided positive support and encouragement. Client Response:: Client responded well to session, open to meeting with therap ist. Client reports her first day back to work went well and she did not feel as anxious as she expected. Client stated developing a plan for coping and using support from her co-worker helped. Client shared she is starting to see the progress that everyone tells me they see. Client has been having less intense anxiety symptoms and her depression is resolving. Client reports using thought challenging, opposite action, and self-care. Client continues to worry about what others think, but she is getting better at practicing self-compassion and not comparing herself to others. Client had a question about her medication refill and the IOP nurse was informed. Discussed the importance of ongoing self- care, even though client is feeling better. Client shared she has a history of not following through with things, but client plans to sign up for the book of the [employer] club. Also reviewed thought challenging skills to combat distortions. Risks/Concerns:: Client denies any suicidal ideation, plan, or intent as of 05/31/20. Progress Toward Goals/Plan:: Client continues to make progress AEB her self- report of reduced intensity of symptoms, improved functioning at home, and return to work part-time this week. Client shared her first day back went well and client feels confident in her ability to do her job. Client continues to report anxiety, still some issues with decision making, guilt that has decreased, and general worries. Continues to struggle with negative self-talk, but this is improving as well. Will continue IOP tx to promote gains, further improve work-related functioning, and increase positive self-talk. Time Stopped:: 10:00
--- NOTE | 2020-06-02 09:00 | BH.SGPN.GN ---
Behaviors/Verbalizations/Mental Status: []Client alert and oriented, casually dressed. Eye contact fair. Motor activity appropriate. Speech within normal limits. Affect congruent, mood euthymic. Thoughts linear, logical, no signs of hallucinations or delusions. Reviewed client?s symptom tracker, no risk or thoughts of suicide ideation, plan, or intent as of 06/02/20. Client Response/Progress/Benefit: []Client responded well to session, engaged throughout and participated in group discussion. Client reported feeling ?excited? this morning as she looks forward to a weekend trip with her daughter. Progress noted as client reflected on her progress and stated ?it feels good to be human again.? Client stated she was able to reframe, grieve, and cry when her family put down their dog earlier this week. Client stated she continues to work on her goal of staying present within the moment. Appeared to benefit from group as client connected with peers and provided positive feedback to others. Will continue IOP to continue thought challenging, practicing self-care, and improve self-confidence. Narrative Note: []
--- NOTE | 2020-06-02 10:05 | BH.SGPN.GN ---
Behaviors/Verbalizations/Mental Status: []Client alert and oriented, casually dressed and appropriately groomed. Eye contact good. Motor activity appropriate. Speech within normal limits. Affect congruent, mood euthymic and anxious, Thoughts linear, logical, no signs of hallucinations or delusions. Client Response/Progress/Benefit: []Client receptive of session, providing input and taking notes throughout. Client agreed with the quote and shared how communicating can be an illusion when neither libertarian is really listening to the other person. Group identified potential barriers to healthy communication as: anxiety, fear of other?s reactions, making assumptions, shutting down, and fear of being vulnerable. Noted a personal communication barrier as letting her emotions override and fear of vulnerability. Client remained attentive and contributed during psychoeducation on the four communication styles, providing input throughout. This is improvement compared to prior groups. Benefited from increased insight regarding own communication style and impacts this has on overall mental health. Client will continue IOP to promote the use of healthy coping skills, improve anxiety management, and challenge negative thoughts. Narrative Note: []
--- NOTE | 2020-06-02 11:10 | BH.SGPN.GN ---
Behaviors/Verbalizations/Mental Status: []Client alert and oriented, casually dressed and groomed. Eye contact fair. Motor activity appropriate. Speech within normal limits. Affect congruent, mood euthymic. Thoughts linear, logical, no signs of hallucinations or delusions. Client Response/Progress/Benefit: []Client engaged participant AEB her attentiveness during discussion and listened to peers. Client reported she is mostly a passive communicator. Client reported this communication style causes negative consequences on her relationships and mental health. Client stated she has never been good at expressing how she feels but now recognizes how this has been damaging to her mental health. Attentive during psychoeducation about DEAR MAN (Describe, Express, Assert, Reinforce, Mindfulness, Appear confident, Negotiate) interpersonal communication skill. Client identified her communication goal is to focus on the skill of expressing how she feels to others honestly. Client seemed to benefit from increased insight into how her communication style impacts her mental health and relationships. Will continue IOP tx to maintain gains, challenge distorted thoughts and prevent decompensation.
--- NOTE | 2020-06-02 12:24 | BH.MDN_ITS ---
Multi-Disciplinary Note - Note 30-min Individual Time Started:: 10:35 Date: 06/02/20 Purpose of session/treatment goals addressed:: To work on goal #1 of client's tx plan. Eye Contact:: Good Motor Activity:: Appropriate Appearance:: Casual Speech:: Appropriate Mood:: Euthymic Affect:: Congruent Thoughts:: Linear, Logical, No evidence of hallucinations/delusions noted Staff Interventions:: Therapist provided encouragement and gentle thought challenging. Therapist encouraged client to follow up on her self-care goals and to continue to practice self-compassion. Therapist and client reviewed return to work plan and discussed aftercare. Client Response:: Client responded well to session, open to meeting with therapist. Client reports that she continues to feel stable and better. Client reports being excited about this upcoming weekend as client will be attending a trip with her oldest daughter. Client continues to practice healthy coping skills and she reports in general that her thought patterns are more positive. Client reports less comparing herself to others and has been more compassionate towards herself. Client and therapist discussed client's plan of care and it was agreed that client will continue IOP for three more weeks. This will be to help client transition back to work full-time and to reinforce healthy coping skills. Client also had questions about potentially weaning off her medications. Will be able to talk with Dr. Lara next week. Client has a busy weekend ahead, but she was encouraged to set aside time for self-care. Client recognizes the importance of setting aside self-care time, even when she is busy. Risks/Concerns:: Client denies any suicidal ideations, plan, or intent as of 06/02/20. Progress Toward Goals/Plan:: Client continues to make progress AEB her ability to return to work and self-report of reduced anxiety at work and home. Client also has been consistently practicing healthy coping skills such as thought challenging, mindfulness, and deep breathing. Client continues to report anxiety, still some issues with decision making, comparison to others, and general worries. Continues to struggle with negative self-talk, but this is improving as well. Will continue IOP tx to promote gains, further improve work- related functioning, and increase positive self-talk. Client will continue coming to IOP three days next week, but only see individual therapist once a week. Time Stopped:: 10:58
--- NOTE | 2020-06-05 09:00 | BH.SGPN.GN ---
Behaviors/Verbalizations/Mental Status: []Client alert and oriented, casually dressed. Eye contact fair. Motor activity appropriate. Speech within normal limits. Affect congruent, mood euthymic. Thoughts linear, logical, no signs of hallucinations or delusions. Reviewed client?s symptom tracker, no risk or thoughts of suicide ideation, plan, or intent as of 06/05/20. Client Response/Progress/Benefit: []Client responded well to session, engaged throughout and participated in group discussion. Client reported feeling ?happy? this morning. Client reported having a good experience with her daughter on a retreat over the weekend. Client stated feeling relaxed and did not need to use healthy coping skills. Client reported working on her goal of easing back into work. Progress noted as client spent time away for the weekend and was not overthinking or stressing about what-ifs. Client benefited from group as she provided positive encouragement and feedback to peers. Will continue IOP to continue the use of healthy coping skills, maintain healthy boundaries, and challenge negative thoughts. Narrative Note: []
--- NOTE | 2020-06-05 10:05 | BH.SGPN.GN ---
Behaviors/Verbalizations/Mental Status: []Client alert and oriented, casually dressed and groomed. Eye contact good. Motor activity appropriate. Speech within normal limits. Affect congruent, mood anxious and euthymic. Thoughts linear, logical, no signs of hallucinations or delusions. Client Response/Progress/Benefit: []Client was an engaged participant AEB taking notes and contributing to discussion. Connected with group topic of perspective and the impacts of one?s perspective on mental health. Client noted that her perspective initially made her resistant to seeking help with her mental health as she viewed it as embarrassing and shameful, but with challenging her perspective has seen the benefits of treatment. Client worked with the group to identify what factors influence our perspective which included: upbringing, stress, environment, society, our mental health, supports, and past experiences. Noted that past societal pressures have impacted her perspective in some situations. Receptive of psychoeducation provided on the mental health impacts of one?s perspective and ways we develop our perspective. Continues to struggle with combating distortions, negative self-talk, anxiety management. Client will continue IOP tx to promote gains, continue to improve self-care and healthy coping, and prevent decompensation. Narrative Note: []
--- NOTE | 2020-06-05 11:10 | BH.SGPN.GN ---
Behaviors/Verbalizations/Mental Status: []Client alert and oriented, casually dressed and groomed. Eye contact fair to good. Motor activity appropriate. Speech within normal limits. Affect congruent, mood euthymic. Thoughts linear, logical, no signs of hallucinations or delusions. Client Response/Progress/Benefit: []Pt responded well to session AEB pt providing input to session, completing worksheet, and listening attentively to peers. Pt stated she was able to identify several personal strengths from worksheet. Reported she has the strength of honesty because she is now more open and honest about her mental health to others. Pt shared when she first started this program she has a lot of shame so didn't talk about it. However, pt stated since being more accepting of self and honest with others she has learned that other people she knows has struggled with similar problems. Pt stated the strength of opennmindedness has helped her gain more from therapy because she became more open to the potential benefit of therapy. Seemed to benefit from increased awareness of personal strengths and identifying examples how her strengths are beneficial. Pt to continue IOP to maintain gains, continue use of healthy coping and prevent decompensation. Narrative Note: []
--- NOTE | 2020-06-07 09:05 | BH.SGPN.GN ---
Behaviors/Verbalizations/Mental Status: [] Eye contact is good. Motor activity is appropriate. Appearance is casual. Speech is Appropriate. Mood is euthymic. Affect is full. Thoughts are linear and logical. No evidence of psychosis. Reviewed daily check in sheet and no reports of suicidal ideations or intent. Client Response/Progress/Benefit: [] Pt participated when prompted. Attentive. Emotion for today is content. Mental health wins included gaining more insight into the decompensation that led to her hospitalization. She discussed patterns in her mental health worsening in conjunction with the seasons. Notes this time was by far the worst. She is working on a plan for next year during the winter months which will include self-care and other s skils. Notes that she continues to function well at work. Changed her perspectives on some mistaken beliefs and is challenging cognitive distortion which is decrease stress and unrealistic expectations. Progress noted per pt report. Benefited from group discussions, feedback, and support. Will continue in [facility] to help with transition back to full-time work. Narrative Note: []
--- NOTE | 2020-06-07 10:00 | BH.SGPN.GN ---
Behaviors/Verbalizations/Mental Status: [] Eye contact is good. Motor activity is appropriate. Appearance is casual. Speech is Appropriate. Mood is euthymic. Affect is full. Thoughts are linear and logical. No evidence of psychosis Client Response/Progress/Benefit: [] Pt was an active participant in group discussion and activity. Attentive during psychoeducation. Along with peers was able to identify barriers to taking action on her mental health which included; fear of failure, the unknown, change, one's environment, past negative experiences, being passive, and fear of vulnerability. Identified several symptoms and stressors that she would feels are holding her back from progress such as comparing self to others, negative self-talk, and unrealistic expectations. Benefited from increased self-awareness of obstacles. Will continue in IOP to maintain gains and transition back to work. Narrative Note: []
--- NOTE | 2020-06-07 11:07 | BH.SGPN.GN ---
Behaviors/Verbalizations/Mental Status: []Client alert and oriented, casually dressed and groomed. Eye contact good. Motor activity appropriate. Speech within normal limits. Affect constricted, mood euthymic. Thoughts linear, logical, no signs of hallucinations or delusions. Client Response/Progress/Benefit: []Client responded well to session, taking notes and participating in worksheet discussion. Client connected with the zones of action/change and reported that staying in the comfort zone keeps people ?stagnant.? Client set a goal to gain control over her unrealistic expectations. Client wants to be able to work on this by creating a standard to measure herself against, so she does not ?always feel like I?m falling short.? Client believes she will need support from her and to write the standards out to accomplish this goal. Appeared to benefit from identifying a small goal to benefit mental health. Will continue IOP tx to promote gains, further improve daily functioning, and reduce negative thinking. Narrative Note: []
--- NOTE | 2020-06-07 11:52 | PCM.BH.PN_ITS ---
Progress Note Progress Note: History of Present Illness/Interim History: [] The patient is a 35-year-old female who is seen in follow-up at the [facility] behavioral health partial hospitalization program. I last saw the patient 2 weeks ago. The patient states that she continues to do well on the Remeron and feels it is really helped her mood and has drastically reduced her anxiety. She is no longer having severe anxiety or dry heaves and her appetite is improved. She is much less red and restless in fact denies any restlessness now. Her mood is euthymic and she is optimistic about the future. She understands that she needs to watch out at this time of year since she seems to have somewhat of a seasonal worsening of her anxiety at her workplace. She is functioning well at work and at home. She does admit that in the last 10 days or so she has only taken her BuSpar 1 time at bedtime and has only taken her Neurontin 1 time at bedtime. She has taken her Remeron every night. She would like to discontinue these medications. She feels she has gained much benefit from the IOP program and feels that she will be ready for discharge soon. Current Psychiatric Medications: [] Remeron 45 mg p.o. nightly (x4 weeks now); gabapentin 300 mg twice daily (only taking it at bedtime for the last 10 days); BuSpar 15 mg p.o. 3 times a day (only taking it at bedtime for the past 10 days). Mental Status Examination: [] The patient is a 35-year-old female who is seen wearing a mask due to the pandemic and is casually dressed and groomed with good hygiene. She has no psychomotor agitation or retardation. Eye contact is good and speech is normal rate and rhythm and fluent with no pressure. Mood is euthymic. Affect is full and normal. Thought process is goal-directed and organized. Thought content: There is no evidence of passive thoughts of , suicidal or homicidal ideation, hallucinations or delusions. Judgment is intact. Insight is good. Impulsivity is low. Diagnoses: [] [place] I: [] Major depressive disorder, recurrent, severe without psychosis (resolving); rule out seasonal affective disorder; panic disorder; generalized anxiety disorder. [place] II: [] Deferred [place] III: [] Negative [place] IV:[]] Primary support, financial and work issues. Plan: [] The patient will continue the IOP program and may discharge soon if she continues to do well. She felt safe during the interview and if it anytime she does not feel safe she will let us know or go to the emergency room. The patient agrees to discontinue taking her Neurontin and BuSpar that she has weaned on her own. She will continue the Remeron. She will follow up with her psych providers when she is discharged from the program and will continue to follow-up with her medical providers. She says she has gained a few pounds on the Remeron but feels that if she continues to exercise and continues healthy e ating habits she is hopeful that she will not gain more weight. I discussed with the patient that after few months she may want to wean off the Remeron and change to an SSRI that would tend to cause less weight gain.
--- NOTE | 2020-06-09 09:02 | BH.SGPN.GN ---
Behaviors/Verbalizations/Mental Status: []Client alert and oriented, neatly dressed and groomed. Eye contact good. Motor activity appropriate. Speech within normal limits. Affect congruent, mood euthymic. Thoughts linear, logical, no signs of hallucinations or delusions. Reviewed client?s symptom tracker, no risk for suicidal ideation, plan, or intent as of 06/09/20 Client Response/Progress/Benefit: []Client responded well to session, engaged and positive. 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 Client used thought challenging and self-talk to help cope with anxious thoughts. Client also plans to sign up for book of the month club to promote self-care when client returns to work. Progress noted as client continues to report more consistent mood stability. Client is still working on transitioning back to work and can benefit from ongoing IOP to help with this transition. Narrative Note: []
--- NOTE | 2020-06-09 10:00 | BH.SGPN.GN ---
Behaviors/Verbalizations/Mental Status: [] Eye contact is good. Motor activity is appropriate. Appearance is casual. Speech is Appropriate. Mood is depressed. Affect is flat. Thoughts are linear and logical. No evidence of psychosis Client Response/Progress/Benefit: [] Pt participated at times during group discussion. Active during group activity. Attentive during psychoeducation on fear and the impact that fear of failure can have. Pt and peers provided insight on thoughts that contribute to fear of failure such as; I'm not good enough, I won't succeed, I know I can't/couldn't do it, Why try ... I will fail, and I could have done that better. Pt and peers were able to identify the benefits to failure in an attempt to reframe. Group identified that failure can be a way to; learn what to do differently, increase resiliency, increase self-compassion, and problem-solve. Pt benefited from psychoeducation on the impact of fear of failure and changing perspective on how to view setbacks. Pt will continue in IOP to maintain safety, increase healthy coping, and improve functioning to return to work full-time. Narrative Note: []
--- NOTE | 2020-06-09 13:46 | BH.MDN_ITS ---
Multi-Disciplinary Note - Note 30-min Individual Time Started:: 11:06 Date: 06/09/20 Purpose of session/treatment goals addressed:: To help client create new, realistic expectation for herself to support full return to work. Other topics included discharge. Eye Contact:: Good Motor Activity:: Appropriate Appearance:: Neat Speech:: Appropriate Mood:: Euthymic Affect:: Congruent Thoughts:: Linear, Logical, No evidence of hallucinations/delusions noted Staff Interventions:: Therapist helped client identify unrealistic expectations she previously held for herself and then assisted client in challenging these expectations. 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 Client Response:: Client responded well to session, open to meeting with therapist. Client continues to report a positive mood and improved functioning. Client is still hoping received outpatient therapy at [facility] [id number], but they are still not accepting new patients. They will start accepting new patients the middle of June. Client continues to report functioning well at work on a part- time basis. Client will transition to three days a week starting next week and feels some anxiety about this, but overall anxiety is decreased. Throughout client's treatment, unrealistic expectations have been discussed and how these expectations reinforce worsening mental health. 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 Realistic expectations included: leaving work by 5 every day, taking a vacation during winter break, not going into school on a weekend more than once a month, and making less detailed lessen plans. Client encouraged to show the realistic expectations to her and get feedback. Risks/Concerns:: Client denies any thoughts of or suicidal ideations as of 06/09/20. Progress Toward Goals/Plan:: Client continues to demonstrate progress towards her tx goals AEB her ongoing report of an improved mood and increased ability to function in all settings. Client is progressing to full-time work and will be working 3 out 5 days next week. Client's anxiety has reduced significantly and she is no longer depressed. However, client does still have anxiety regarding job performance and can benefit from several more IOP sessions to promote the transition back to full-time employment. Client will continue IOP tx through next week. Time Stopped:: 11:32
== END 2020-06-09 23:59 ==
LOC: BHIOP 09:00
PROVIDERS: Referring Provider Psychiatry & Neurology Psychiatry; Visit Provider Psychiatry & Neurology Psychiatry
DX: F33.2 Major depressive disorder, recurrent severe without psychotic features (principal); F41.0 Panic disorder [episodic paroxysmal anxiety]; F41.1 Generalized anxiety disorder; Z79.899 Other long term (current) drug therapy
CPT/HCPCS: H0035; 90832; 90853

== ENCOUNTER 2020-06-14 09:00 | Outpatient (RCR) | payer OTHER, SELFPAY ==
[2016-03-21 06:17] VITALS: BMI 35.7
--- NOTE | 2020-06-14 09:00 | BH.SGPN.GN ---
Behaviors/Verbalizations/Mental Status: [] Eye contact is good. Motor activity is appropriate. Appearance is casual. Speech is Appropriate. Mood is euthymic. Affect is full. Thoughts are linear and logical. No evidence of psychosis. Reviewed daily check in sheet and no reports of suicidal ideations or intent. Client Response/Progress/Benefit: [] Pt participated at times during the group discussion. Attentive. Provided feedback at times. Emotion for today is happy. Reports that her transition back to work continues to go well. Utilizing skills such as self-care and thought reframing. Reports that home life is going well and discussed time spent with family over the weekend. She believes that her decompensation is seasonal with this year being the worst. She is developing strategies to use for next year. Progress noted per pt report. Benefited from group support, encouragement, and feedback. Will continue in IOP to maintain gains and help with transition back to work. Narrative Note: []
--- NOTE | 2020-06-14 10:05 | BH.SGPN.GN ---
Behaviors/Verbalizations/Mental Status: []Eye contact is fair to good. Motor activity is appropriate. Appearance is neat and casual. Speech is Appropriate. Mood is anxious and euthymic. Affect is constricted. Thoughts are linear and logical. No evidence of psychosis. Client Response/Progress/Benefit: []Pt was an active participant in group discussion and activity, provided limited input but remained attentive and taking notes throughout. Attentive and provided some input during discussion on benefits and examples of healthily social supports. Client identified her family and the IOP program as supports. Group noted benefits of strong social supports as: feel less alone, hold us accountable, provide different perspective, encouragement, and help us through providing a skill or insight we might not. Client engaged in discussion on barriers to using support system. Identified a personal barrier to using her supports as feeling like a burden, self-criticism, and lack of communication. Expressed making significant strides in willingness to use supports and ask for help with her mental health since beginning tx. Able to see the impact of support and its benefits during activity and challenges of accomplishing tasks w/o proper support. Benefited from awareness of barriers to support as well as importance of support in mental health wellness. Narrative Note: []
--- NOTE | 2020-06-14 11:07 | BH.SGPN.GN ---
Behaviors/Verbalizations/Mental Status: []Client alert and oriented, neatly dressed and groomed. Eye contact good. Motor activity appropriate. Speech within normal limits. Affect constricted, mood euthymic. Thoughts linear, logical, no signs of hallucinations or delusions. Client Response/Progress/Benefit: []Client an active participant throughout AEB contributing to discussion, taking notes, and providing supportive feedback. Client participated in the group activity highlighting the various barriers to effectively utilizing supports and strategies the group used. Client participated in discussion of the four types of support (emotion, tangible, informational, and social) and the group listed examples for all types. Client reports wanting to work on increasing social support such as having dates with her spouse and friends. Client stated this will give client some time with adults and broaden her interests. Client plans to do this by scheduling a date night with her . Client seemed to benefit from identifying the type of support client wants to improve. Will continue IOP tx to promote gains and reinforce coping skills learned that help client function at work. Narrative Note: []
--- NOTE | 2020-06-21 09:00 | BH.SGPN.GN ---
Behaviors/Verbalizations/Mental Status: [] Eye contact is good. Motor activity is appropriate. Appearance is casual. Speech is Appropriate. Mood is euthymic. Affect is full. Thoughts are linear and logical. No evidence of psychosis. Reviewed daily check in sheet and no reports of suicidal ideations or intent. Client Response/Progress/Benefit: [] Pt participated when prompted. Attentive. Pt shared that today is going to be her last day in [facility]. Shared that she is feeling significantly more stable since entering [facility]. Utilizing skills, managing stress more effectively, and challenge negative thoughts. Improve functioning noting that she has been back to work almost full-time and is excelling. 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 Shared that group on cognitive distortions was most helpful and most overwhelming. Progress noted. Will be discharged from [facility] today. Narrative Note: []
--- NOTE | 2020-06-21 10:10 | BH.SGPN.GN ---
Behaviors/Verbalizations/Mental Status: []Client alert and oriented, neatly dressed and groomed. Eye contact good. Motor activity appropriate. Speech within normal limits. Affect congruent, mood euthymic. Thoughts linear, logical, no signs of hallucinations or delusions. Client Response/Progress/Benefit: []Client engaged participant AEB listening to peers and taking notes. Client was quiet, but took a leadership role during the activity. Group gave examples of unhealthy coping skills such as avoiding, drugs/alcohol, isolation, and impulsive spending. Group shared that people tend to use unhealthy coping skills because they are easier and provide quick relief. Client participated in the group activity and connected that a healthy foundation of coping skills is composed of healthy internal and external coping skills. Client seemed to benefit from increased awareness of the importance of increasing healthy coping skills and consequences of utilizing unhealthy coping skills. Will discharge from IOP tx today as client has made significant progress towards tx goals and no longer meets criteria for IOP level of care. Narrative Note: []
--- NOTE | 2020-06-21 11:14 | BH.AFTERPLAN ---
Aftercare Plan - Demographics Treatment End Date:: 06/21/20 Psychiatrist:: Amarilys Lara Psychiatrist Office #:: [phone] PHP/IOP Therapist:: Marce Pan Therapist Phone #:: [phone] - Plan Details Progress/Aftercare Plan Details:: Brigida has made significant strides since starting IOP as shown by her improved mood and functioning, ability to challenge distortions, and overall more positive outlook. When Brigida started PHP/IOP, she was severely anxious to the point where she could not function, make decisions, or find comfort in daily life. Brigida was experiencing depression, isolation, and negative self-talk. Now, Brigida is more positive, has returned to work full-time, and is able to manage mental health symptoms more easily. Brigida self-reports progress in the following areas: better insight, increased ability to challenge negative thinking, better focus, less self-comparison, more self-acceptance, and feeling more connected with family and other supports. Brigida was active in both group and individual therapy sessions. Brigida contributed to group discussions, offered emotional support to peers, and consistently followed through with her goals. In individual sessions, Brigida was receptive to feedback, consistent with homework, and willing to push herself. Brigida?s DSM-5 scores decreased overall by 89%, depression decreased by 88%, SI decreased by 100%, anxiety decreased by 90%, and not knowing what who she is or what she wants in life decreased by 71%. Brigida will follow up with [facility] for medication management and counseling. Strategies for Success:: 1. Challenge those negative thoughts! Reminders: this is a bad moment not a bad day, emotions and thoughts are not facts, you are ENOUGH and do not need to be the best to be great at your job. Worst case scenarios are not likely to happen and anxiety lies. 2. Self-care...big or small, it is all important. Continue to make that a priority. This might also mean setting boundaries at work or giving yourself some compassion. 3. Verbalize your emotions, don't suppress them. You have been doing great with this, but keep it up. 4. Communicate with support and verbalize your needs. 5. Challenge shame? don?t hide or avoid. Remember everyone struggles and that does not mean you have to hide. 6. Keep exploring you! Look over that list of hobbies and interests and follow through. 7. Maintenance! Keep up with what has worked. 8. Give yourself credit! You have seriously come so far. - Appointments Appointments/Referrals to Other Services:: 1. Follow up with [facility]. I will fax over your discharge info after today. 2. Follow up with me via telehealth on 07/05/20 at 2:00pm - Medications Home Medications: Home Medications buspirone 15 mg PO TID 30 Days #90 tablet 05/24/20 gabapentin 300 mg PO BID 30 Days #60 capsule 05/24/20 mirtazapine 45 mg PO QHS 30 Days #30 tab.rapdis 05/24/20
--- NOTE | 2020-06-21 14:30 | BH.DS_ITS ---
Discharge Summary - Demographics Date of Admission:: 05/25/20 Discharge Date: 06/21/20 Presenting Problems at Admission:: Client is a 35-year-old female with a history of depression and panic disorder. Client was admitted to [facility] from 05/04/20-05/12/20 due to increased hopelessness and suicidal ideations with methods. Client did not have suicidial ideations following her discharge from [facility]. Client completed PHP prior to [facility] and showed progress. At admission to [facility], client reported issues with lack of concentration, worries about the future, inappropriate guilt, and anxiety. Client continued to second- guess herself and strugglesd with decision making. Client?s functioning was still below her baseline when admitted to [facility] tx. Discharge Diagnoses:: Major depressive disorder, recurrent, severe without psychosis F 33.2; rule out seasonal affective disorder; panic disorder; generalized anxiety disorder Reason for Discharge:: Client has made significant progress while in [facility] tx AEB a 89% reduction in DSM-5 symptoms and report of improved functioning in multiple areas of her life. Will transition to outpatient counseling. - Treatment Progress During Treatment & Response: Client has made significant progress while in [facility] tx AEB client's overall symptom reduction, improved functioning, and increased self-confidence. Client has been able to return to work full-time and reports this is going well. Client's ability to manage anxiety and stressful situations has significantly improved. Client's symptoms have decreased by 89%, depression decreased by 88%, SI decreased by 100%, anxiety decreased by 90%, and not knowing what who she is or what she wants in life decreased by 71%. Client had consistent attendance throughout her time in [facility] and was an active participant in both group and individual sessions. Client was consistent with homework and followed through with goals she set during sessions. Issues Still to be Addressed:: Client can benefit from continuing to work on increasing self-worth, building meaningful hobbies, and challenging distorted thought patterns. Client can benefit from working on setting healthy boundaries and combatting unrealistic expectations to help client maintain work-life balance. Discharge Recommendations/Instructions:: Client is recommended to follow up with [facility] [id number] for outpatient services. Client plans to call and schedule an appointment at [facility] next week as they are not accepting new patients until next week. Client will meet with this therapist on 07/05/20 to bridge the gap in services. Discharge Handout: Complete Discharge Handout with client on aftercare options and continuity of care.
--- NOTE | 2020-06-21 14:30 | BH.MDN_ITS ---
Multi-Disciplinary Note - Note 30-min Individual Time Started:: 11:20 Date: 06/21/20 Purpose of session/treatment goals addressed:: The purpose of this session was to review client's progress and review strategies that will promote mood stability and gains made in IOP. Another goal was to discuss discharge recommendations and process any current stressors. Eye Contact:: Good Motor Activity:: Appropriate Appearance:: Neat Speech:: Appropriate Mood:: Euthymic Affect:: Full Thoughts:: Linear, No evidence of hallucinations/delusions noted Staff Interventions:: Therapist used open-ended questions to explore client's thoughts on personal progress. Therapist also provided emotional support and helped client problem-solve current stressors. Therapist reviewed supports and coping skills with client to promote gains and prevent setbacks. Therapist disc ussed aftercare plan with client and used strengths-perspective to empower client on the goals client has accomplished. Therapist discussed the benefits of ongoing maintenance and use of daily coping skills. Therapist gave client a quote collage for closure. Client Response:: Client responded well to session, open to meeting with therapist. Client shared she has been feeling good and functioning well. Client continues to report work is going well and that she has a better work-life balance. Client shared one stressor that occured at work, but client felt like she was able to manage this without spiraling. Client self-reports progress with reframing negative thoughts, being more realistic with expectations, being more present, and managing stress better. Client acknowledged her score decrease and reported I figured it would be much lower, I'm in a way different place. Discussed balance client can have moving forward to maintain progress. Client will also schedule an appointment with [facility] [id number] for outpatient counseling and psychiatry. Risks/Concerns:: Client denies any thoughts of or SI. Progress Toward Goals/Plan:: Client has made significiant progress while in IOP AEB her 89% decrease in DSM-5 scores. Client reports significant reduction of depression, anxiety, and anger. Client has returned to work full-time this week and reports ability to function at her baseline. Client will discharge from [facility] tx as she has made significant progress and no longer meets criteria for IOP level of care. Client will follow up with [facility] [id number]. Time Stopped:: 11:50
== END 2020-06-21 14:00 | disposition home or self-care (01) ==
LOC: BHIOP 09:00
PROVIDERS: Referring Provider Psychiatry & Neurology Psychiatry; Visit Provider Psychiatry & Neurology Psychiatry
DX: F33.2 Major depressive disorder, recurrent severe without psychotic features (principal); F41.0 Panic disorder [episodic paroxysmal anxiety]; F41.1 Generalized anxiety disorder
CPT/HCPCS: H0035; 90832; 90853

== ENCOUNTER → 2020-10-02 | Outpatient (CLI) | payer OTHER, SELFPAY ==
[2020-10-05 10:28] LABS: HPV APTIMA, High Risk Negative (Negative)
== END | disposition home or self-care (01) ==
LOC: LABSPEC 16:44
PROVIDERS: Referring Provider Nurse Practitioner Women's Health; Visit Provider Nurse Practitioner Women's Health
DX: Z12.4 Encounter for screening for malignant neoplasm of cervix (principal)
CPT/HCPCS: 87624; 88175; G0145

== ENCOUNTER → 2023-12-24 | Outpatient (CLI) | payer OTHER, SELFPAY ==
[2024-01-01 11:10] LABS: HPV APTIMA, High Risk Negative (Negative)
== END | disposition home or self-care (01) ==
LOC: LABSPEC 16:36
PROVIDERS: Referring Provider Advanced Practice Midwife; Visit Provider Advanced Practice Midwife
DX: Z12.4 Encounter for screening for malignant neoplasm of cervix (principal)
CPT/HCPCS: 87624; 88175; G0145

== ENCOUNTER → 2024-03-19 | Outpatient (CLI) | payer OTHER, SELFPAY ==
--- NOTE | 2024-03-19 14:13 | BI_ITS ---
PROCEDURE: SCRN MAMM (CAD)W/MAYKEL BILAT REASON FOR EXAM: F, Age 38 y/o , history of maternal grandmother. COMPARISON: Baseline TECHNIQUE: Bilateral screening digital breast tomosynthesis with C-View and 2D FFDM. Computer aided detection. FINDINGS: There are scattered areas of fibroglandular density. Small bilateral axillary lymph nodes. Normal BI/SCRN MAMM (CAD)W/MAYKEL BILAT IMPRESSION: BI-RADS 2: BENIGN. RECOMMEND ANNUAL MAMMOGRAPHIC SCREENING. Routine annual follow-up. The patient will be notified of the results by letter. Reading Location: [facility]
== END | disposition home or self-care (01) ==
LOC: OPBI 14:12
PROVIDERS: PCP Nurse Practitioner Family; Referring Provider Advanced Practice Midwife; Visit Provider Advanced Practice Midwife
DX: Z12.31 Encounter for screening mammogram for malignant neoplasm of breast (principal)
CPT/HCPCS: 77063; 77067